=== PATIENT | female | born 1945 | race Caucasian/White ===

== ENCOUNTER 2016-09-01 09:27 | Inpatient (IN) ==
--- NOTE | 2016-09-01 10:09 | Emergency Department Note ---
Disposition Clinical Impression: Community acquired pneumonia, Dyspnea, Lactic acidosis, Frail elderly, Hiatal hernia, Hyperglycemia Disposition: Admitted As Inpatient Referrals: Claude Blount MD [Primary Care Provider] - Forms: ED Satisfaction Letter General Adult HPI - General Chief complaint: ED Shortness of Breath/Dyspnea Stated complaint: Pneumonia, pleurisy Time Seen by Provider: 09/01/16 10:09 Source: patient Limitations: no limitations - History of Present Illness HPI Narrative: 70-year-old female reports to the emergency from her primary care physician's office with concerns for shortness of breath or persistent cough. The patient has had symptomatology for about one week. She went to see her primary care physician on Sunday was placed on Levaquin and steroid medication, she followed up today and had persistent symptoms, he was reportedly concerned based on her apparent nonimprovement and shortness of breath and sent the patient to the hospital for further evaluation. She describes chest pain associated with coughing no coughing up blood or syncope. The patient has no known lung disease, she does not have asthma COPD or require oxygen at home. There is no history of fever. No previous DVT PE or cancer noted. The patient has had no abdominal pain but has had recurrent diarrhea. No blood in the stool. No syncope. No trouble moving the arms or legs and apparently no acute back pain or urinary symptoms noted. Cough, dyspnea, and a diagnosis of pneumonia are reported. Pain Scale: 7 - Related Data Home Medications Medication Instructions Recorded Confirmed Alprazolam [Xanax] 0.25 mg PO BID 03/24/15 03/24/15 HYDROcodone/Acet 10/325 mg [[place] 0.5 each QID 03/24/15 03/24/15 10-325 mg] Metoprolol [Lopressor] 25 mg PO BID 03/24/15 03/24/15 Tizanidine [Zanaflex] 4 mg PO TID 03/24/15 03/24/15 Previous Rx's Medication Instructions Recorded Esomeprazole Magnesium [Nexium] 20 mg PO DAILY #20 capsule. 03/24/15 Allergies Allergy/AdvReac Type Severity Reaction Status Date / Time No Known Allergies Allergy Verified 03/24/15 12:49 All systems ED: reviewed and negative except as stated. Past Medical History - Past Medical History Medical history: Reports: arthritis, GERD, hyperlipidemia, hypertension, other Surgical history: Reports: appendectomy, colectomy, hysterectomy, orthopedic, other Psychiatric history: Reports: anxiety, depression SYSTEMS DEVELOPMENT CONSULTANT history: Reports: no SYSTEMS DEVELOPMENT CONSULTANT history - Social History Smoking Status: Current every day smoker Smokeless Tobacco Status: No Alcohol use: Reports: none Drug use: Reports: none Physical Exam - General Limitations: no limitations General appearance: alert, in no apparent distress - Head Head exam: atraumatic, normocephalic, normal inspection - Eye Eye exam: Present: normal appearance, PERRL, EOMI - ENT ENT exam: normal exam, normal oropharynx, mucous membranes moist, TM's normal bilaterally, normal external ear exam - Neck Neck exam: Present: normal inspection, full ROM, trachea midline - Chest Chest inspection: Present: symmetric chest wall rise. Absent: tenderness - Respiratory Respiratory exam: Present: prolonged expiratory phase, other (Coarse breath sounds on the right.). Absent: respiratory distress - Cardiovascular Cardiovascular exam: Present: regular rate, normal rhythm, normal heart sounds - Abdominal Exam Abdominal exam: Present: soft, Non-Tender. Absent: tenderness, distention, guarding, rebound, rigidity, pulsatile mass - Extremities Exam Extremities exam: Present: normal inspection, full ROM, normal capillary refill. Absent: tenderness, pedal edema, joint swelling, calf tenderness - Expanded Lower Extremity Exam Lower leg exam: Absent: Homans' sign Neurovascular/Tendon exam: Absent: motor deficit, sensory deficit, tendon deficit - Back Exam Back exam: Present: normal inspection, full ROM. Absent: tenderness, CVA tenderness (R), CVA tenderness (L), vertebral tenderness - Neurological Exam Neurological exam: Present: alert, oriented X3, CN II-XII intact. Absent: motor sensory deficit - Psychiatric Psychiatric exam: Present: normal affect, normal mood - Skin Skin exam: Present: warm, dry, intact, normal color. Absent: rash, cyanosis, diaphoresis, erythema, pallor, mottled Course Vital Signs Temperature 98.8 F 09/01/16 09:34 Pulse Rate 87 09/01/16 09:34 Respiratory Rate 18 09/01/16 09:34 Blood Pressure 179/103 09/01/16 09:34 O2 Sat by Pulse Oximetry 94 L 09/01/16 09:34 Temperature 98.8 F 09/01/16 09:34 Pulse Rate 78 01/20/17 11:16 Respiratory Rate 18 09/01/16 11:16 Blood Pressure 148/76 09/01/16 11:16 O2 Sat by Pulse Oximetry 98 09/01/16 11:16 Oxygen Delivery Oxygen Delivery Nasal Cannula Medical Decision Making - [facility] Narrative Medical decision making narrative: The patient is elderly, dyspneic, and has coarse breath sounds. She has been treated outpatient. She seems to have had no improvement after outpatient treatment. Her primary care physician had seen her twice this week and sent her to the hospital. We gave her a DuoNeb here in the ER and supplemented her oxygen. She had relative hypoxemia with a sat of 94. Her chest x-ray shows probable atelectatic change with a large hiatal hernia, she does have an elevated white blood cell count as well as lactic acid, fluid was ordered. IV antibiotic's word. Cultures were sent. The patient's cardiac testing is essentially negative. No acute changes noted. Based on her persistent symptomatology, age, abnormal laboratory findings, course breath sounds, and apparent nonimprovement on an outpatient basis I have consulted the hospitalist. - Lab Data Lab results reviewed: Yes I reviewed the patient's lab results. Result diagrams: 09/01/16 10:22 09/01/16 10:22 Lab Results 09/01/16 09/01/16 09/01/16 Range/Units 10:22 10:22 10:22 WBC 12.1 H (4.3-11.1) K/mcL RBC 4.27 (3.82-4.97) M/mcL Hgb 13.9 (11.5-15.4) g/dL Hct 40.6 (35.3-44.9) % MCV 95.1 (83.0-100.0) fL MCH 32.6 (28.0-33.3) pg MCHC 34.2 (31.6-35.5) g/dL RDW 12.8 (11.5-14.5) % Plt Count 256 (140-400) K/mcL MPV 9.5 (9.4-12.4) fL Immature Gran % 1.0 (0-4) % Seg Neutrophils % 86.7 % Lymphocytes % 8.3 % Monocytes % 3.8 % Eosinophils % 0.0 % Basophils % 0.2 % Neutrophils # 10.5 H (1.6-8.9) K/mcL Lymphocytes # 1.0 (0.6-4.6) K/mcL Monocytes # 0.5 (0.0-1.3) K/mcL Eosinophils # 0.0 (0.0-0.6) K/mcL Basophils # 0.0 (0.0-0.2) K/mcL Sodium 142 (136-145) mEq/L Potassium 3.6 (3.5-4.5) mEq/L Chloride 110 H (98-109) mEq/L Carbon Dioxide 19 (19-29) mEq/L BUN 17 (7-20) mg/dL Creatinine 0.85 (0.57-1.11) mg/dL Est GFR ( Amer) > 60 (> 60) Est GFR (Non-Af Amer) > 60 (> 60) BUN/Creatinine Ratio 20 (6-26) Glucose 146 H (70-99) mg/dL Calculated Osmolality 298 (280-300) Lactic Acid 3.1 H (0.5-2.2) mmol/L Calcium 9.8 (8.6-10.8) mg/dL Total Bilirubin 0.3 (0.2-1.2) mg/dL Direct Bilirubin 0.1 (0.0-0.5) mg/dL Indirect Bilirubin 0.2 (0.0-1.2) mg/dL AST 14 (5-34) Units/L ALT 20 (0-55) Units/L Alkaline Phosphatase 70 (38-126) Units/L Troponin I (0-0.03) ng/mL C-Reactive Protein (Less than 5) mg/L B-Natriuretic Peptide (0-100) pg/mL Serum Total Protein 7.5 (6.0-8.3) g/dL Albumin 3.3 L (3.5-5.0) g/dL Globulin 4.2 H (2.4-3.5) g/dL Albumin/Globulin Ratio 0.8 L (1.1-2.2) 09/01/16 09/01/16 09/01/16 Range/Units 10:22 10:22 10:22 WBC (4.3-11.1) K/mcL RBC (3.82-4.97) M/mcL Hgb (11.5-15.4) g/dL Hct (35.3-44.9) % MCV (83.0-100.0) fL MCH (28.0-33.3) pg MCHC (31.6-35.5) g/dL RDW (11.5-14.5) % Plt Count (140-400) K/mcL MPV (9.4-12.4) fL Immature Gran % (0-4) % Seg Neutrophils % % Lymphocytes % % Monocytes % % Eosinophils % % Basophils % % Neutrophils # (1.6-8.9) K/mcL Lymphocytes # (0.6-4.6) K/mcL Monocytes # (0.0-1.3) K/mcL Eosinophils # (0.0-0.6) K/mcL Basophils # (0.0-0.2) K/mcL Sodium (136-145) mEq/L Potassium (3.5-4.5) mEq/L Chloride (98-109) mEq/L Carbon Dioxide (19-29) mEq/L BUN (7-20) mg/dL Creatinine (0.57-1.11) mg/dL Est GFR ( Amer) (> 60) Est GFR (Non-Af Amer) (> 60) BUN/Creatinine Ratio (6-26) Glucose (70-99) mg/dL Calculated Osmolality (280-300) Lactic Acid (0.5-2.2) mmol/L Calcium (8.6-10.8) mg/dL Total Bilirubin (0.2-1.2) mg/dL Direct Bilirubin (0.0-0.5) mg/dL Indirect Bilirubin (0.0-1.2) mg/dL AST (5-34) Units/L ALT (0-55) Units/L Alkaline Phosphatase (38-126) Units/L Troponin I 0.01 (0-0.03) ng/mL C-Reactive Protein 11 H (Less than 5) mg/L B-Natriuretic Peptide 146 H (0-100) pg/mL Serum Total Protein (6.0-8.3) g/dL Albumin (3.5-5.0) g/dL Globulin (2.4-3.5) g/dL Albumin/Globulin Ratio (1.1-2.2) - Radiology Data Radiology results reviewed: Yes I reviewed the patient's radiology results.
[2016-09-01] MEDS ORDERED: Ipratropium/Albuterol Neb 3 ML IH ONE (10:10)
[2016-09-01] MEDS ORDERED: 0.9 % Sodium Chloride 1,000 ML IVC ONE ×2 (10:11→11:51)
[2016-09-01 10:34] LABS: Basophils % 0.2 %; Hematocrit 40.6 % (35.3-44.9); Hemoglobin 13.9 g/dL (11.5-15.4); Lymphocytes % 8.3 %; Mean Corpuscular HGB Conc 34.2 g/dL (31.6-35.5); Mean Corpuscular Hemoglobin 32.6 pg (28.0-33.3); Mean Corpuscular Volume 95.1 fL (83.0-100.0); Mean Platelet Volume 9.5 fL (9.4-12.4); Monocytes # 0.5 K/mcL (0.0-1.3); Monocytes % 3.8 %; Neutrophils # 10.5 K/mcL (1.6-8.9); Platelet Count 256 K/mcL (140-400); Red Blood Count 4.27 M/mcL (3.82-4.97); Red Cell Distribution Width 12.8 % (11.5-14.5); Segmented Neutrophils % 86.7 %
[2016-09-01 10:47] LABS: Alanine Aminotransferase 20 Units/L (0-55); Albumin 3.3 g/dL (3.5-5.0); Albumin/Globulin Ratio 0.8 (1.1-2.2); Alkaline Phosphatase 70 Units/L (38-126); Aspartate Amino Transferase 14 Units/L (5-34); BUN/Creatinine Ratio 20 (6-26); Bilirubin,Direct 0.1 mg/dL (0.0-0.5); Bilirubin,Indirect 0.2 mg/dL (0.0-1.2); Bilirubin,Total 0.3 mg/dL (0.2-1.2); Blood Urea Nitrogen 17 mg/dL (7-20); Calcium 9.8 mg/dL (8.6-10.8); Carbon Dioxide 19 mEq/L (19-29); Chloride 110 mEq/L (98-109); Globulin 4.2 g/dL (2.4-3.5); Glucose 146 mg/dL (70-99); Osmolality,Calculated 298 (280-300); Potassium 3.6 mEq/L (3.5-4.5); Sodium 142 mEq/L (136-145); Total Protein 7.5 g/dL (6.0-8.3); eGFR For African Americans > 60 (> 60); eGFR For Non-African Americans > 60 (> 60)
[2016-09-01] MEDS ORDERED: Levofloxacin 750 MG/150 ML 750 MG/150 ML BAG IVPB ONE (12:08)
[2016-09-01] MEDS ORDERED: Ondansetron 4 MG/2 ML VIAL IVP PRN (12:34)
[2016-09-01] MEDS ORDERED: *HR* Morphine 2 MG/ML SYRINGE IVP PRN (12:34)
[2016-09-01] MEDS ORDERED: Naloxone 0.4 MG/ML INJ IVP PRN (12:34)
[2016-09-01] MEDS ORDERED: Ipratropium/Albuterol Neb 3 ML IH PRN (12:38)
[2016-09-01] MEDS ORDERED: methylPREDNISolone 125 MG/2 ML VIAL IVP ONE (12:38)
--- NOTE | 2016-09-01 12:44 | Internal Med History&Physical ---
Date of Encounter: 09/01/16 Time of Encounter: 12:41 Assessment and Plan (1) Sepsis Current visit: Yes Status: Acute Possible acute COPD exacerbation Secondary to community-acquired pneumonia that failed outpatient therapy Start Rocephin and azithromycin Blood Cultures, Start IV Solu-Medrol, Continue Oxygen Therapy Order Another Lactic Acid Mild hydration Check a respiratory viral panel Qualifiers: Sepsis type: sepsis due to unspecified organism Qualified Code(s): A41.9 - Sepsis, unspecified organism (2) Hypertension Current visit: Yes Status: Acute Accelerated hypertension Continue metoprolol, order hydralazine IV as needed Qualifiers: Hypertension type: essential hypertension Qualified Code(s): I10 - Essential (primary) hypertension (3) Tobacco abuse Current visit: Yes Status: Acute Smoking cessation counseling given for 5 minutes. Nicotine patch offered (4) Community acquired pneumonia Current visit: Yes Status: Acute (5) Lactic acidosis Current visit: Yes Status: Acute Likely secondary to sepsis Omeprazole for GI prophylaxis and subcutaneous heparin for DVT prophylaxis. The patient will be admitted as inpatient, she is expected to stay more than 2 midnights. Full code. Time spent on this admission 40 minutes. High risk for respiratory failure and sepsis Internal Medicine - H&P: HPI Chief complaint: SOB and Pneumonia Admitted From: Emergency Dept History of present illness: Ms. Lopez is a 70 year old female with a PMHx of tobacco abuse, HTN, HLD, comes today to the ER from her primary care physician office as she has been dealing with a respiratory infection for about a week. 2 days ago, she was started on Levaquin by her primary care physician was given prednisone as well. She is in complaining of right sided chest pain pleuritic in nature. Unfortunately the patient has not improved, her lactic acid is 3.1, white blood cell count is 12.1, has been bringing up yellowish phlegm. Chest x-ray shows a retro-cardiac opacity/left lower lobe infiltrate. She denies any sick contacts. Her blood pressure is 179/103. She is very anxious and feels extremely short of breath, appears ill, has been complaining of chills. Failed outpatient therapy. Has no prior diagnosis of COPD Past Med Surg Social Fam HX - Past Medical History Medical history: arthritis, GERD, hyperlipidemia, hypertension, other (Tobacco use, osteoarthritis, depression, degenerative joint disease, diverticulosis, iron deficiency anemia) Psychiatric history: anxiety, depression - Past Surgical History Surgical History: appendectomy, colectomy, hysterectomy, orthopedic, other - Social History Smoking Status: Current every day smoker Packs per day: 1 Smokeless Tobacco Status: No Alcohol use: none Drug use: none - Additional Family History Additional family history: Mother with diabetes and myocardial infarction in her 60s, father with a myocardial infarction, 2 sons who of myocardial infarction at the ages of 38 and 49 Internal Medicine - H&P: Meds Alprazolam [Xanax] 0.25 mg PO BID 03/24/15 [History] HYDROcodone/Acet 10/325 mg [[place] 10-325 mg] 0.5 each QID 03/24/15 [History] Metoprolol [Lopressor] 25 mg PO BID 03/24/15 [History] Tizanidine [Zanaflex] 4 mg PO TID 03/24/15 [History] Acetaminophen [Tylenol] 1,000 mg PO Q6HR PRN 09/01/16 [History] Ascorbate Calcium [Vitamin C] 500 mg PO DAILY 09/01/16 [History] Ferrous Sulfate [Iron] 325 mg PO BID 09/01/16 [History] Ketoconazole Shampoo [Nizoral Shampoo] 1 appl TP 3XW 09/01/16 [History] L. Acidophilus/Pectin, [place] [Acidophilus Probiotic Capsule] 1 cap PO DAILY [History] Levofloxacin [Levaquin] 500 mg PO DAILY 09/01/16 [History] Magnesium Amino Acid Chelate [Magnesium] 100 mg PO DAILY 09/01/16 [History] Melatonin 5 - 10 mg PO HS 09/01/16 [History] Mometasone Furoate [Elocon] 1 appl TP DAILY 09/01/16 [History] Nitroglycerin [Nitrostat] 0.4 mg SL AD PRN 09/01/16 [History] [place]-3/Dha/Epa/Fish Oil [Fish Oil 1,000 mg Softgel] 1,000 mg PO DAILY 09/01/16 [History] Omeprazole [PriLOSEC] 20 mg PO DAILY 09/01/16 [History] Potassium Gluconate 99 mg PO DAILY 09/01/16 [History] PredniSONE 10 mg PO AD 09/01/16 [History] Allergies No Known Allergies Allergy (Verified 08/12/15 12:49) All Systems PM: A 10-system review of systems was performed and is negative for pertinent findings except as documented above in the HPI. Review of systems: Still in respiratory distress, no abdominal pain, no dysuria. Other systems out of the ten reviewed were negative - Constitutional Vitals: Temp Pulse Resp BP Pulse Ox 98.8 F 78 18 148/76 98 09/01/16 09:34 09/01/16 11:16 09/01/16 11:16 09/01/16 11:16 09/01/16 11:16 General appearance: Present: A&O X 3, underweight - Head Head exam: Present: atraumatic, normocephalic - Eye Eye exam: Present: PERRL, conjuntiva pink, sclera anicteric Pupils: Present: PERRL - Neck Neck exam general surgery: Present: supple, trachea midline. Absent: lymphadenopathy - Respiratory Respiratory exam: Present: CTAB, rales, wheezes (Diffuse crackles and wheezing mainly in the left lung field ). Absent: accessory muscle use, rhonchi - Cardiovascular Cardiovascular exam: Present: RRR, +S1, +S2. Absent: diastolic murmur, gallop, rubs, systolic murmur - GI/Abdominal GI/Abdominal exam: Present: normal bowel sounds, soft, no peritoneal signs. Absent: distended, tenderness - Extremities Exam Extremities exam: Present: warm, radial pulses palpable and symetrical. Absent : calf tenderness, cyanotic, pedal edema - Neurological Exam Neurological exam: Present: CN II-XII intact, oriented X3, no focal deficits. Absent: pronater drift, facial droop, speech deficit - Skin Skin exam: Present: dry, intact Internal Med - H&P Results - Labs CBC & Chem 7: 09/01/16 10:22 09/01/16 10:22
[2016-09-01] MEDS: Ipratropium/Albuterol Neb 3 ML IH SCH ×3 (13:36→22:46)
[2016-09-01] MEDS: 0.9 % Sodium Chloride 1,000 ML IVC SCH (14:17)
[2016-09-01] MEDS: Nicotine 21 MG PATCH.TD24 TD SCH (14:17)
[2016-09-01] MEDS: Azithromycin 500 MG in D5% in Water 250 ML IVPB SCH (16:07)
--- NOTE | 2016-09-01 16:12 | Electrocardiograph Report ---
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
[2016-09-01 16:13] LABS: Adenovirus Not Detected (Not Detect); Bordetella Pertussis Not Detected (Not Detect); Chlamydophila pneumoniae Not Detected (Not Detect); Coronavirus 229E Not Detected (Not Detect); Coronavirus HKU1 Not Detected (Not Detect); Coronavirus NL63 Not Detected (Not Detect); Coronavirus OC43 Not Detected (Not Detect); Human Metapneumovirus Not Detected (Not Detect); Human Rhinovirus/Enterovirus Not Detected (Not Detect); Influenza A Subtype 2009 H1 Not Detected (Not Detect); Influenza A Untypeable Not Detected (Not Detect); Influenza B Not Detected (Not Detect); Mycoplasma pneumoniae Not Detected (Not Detect); Parainfluenza Virus 1 Not Detected (Not Detect); Parainfluenza Virus 2 Not Detected (Not Detect); Parainfluenza Virus 3 Not Detected (Not Detect); Parainfluenza Virus 4 Not Detected (Not Detect); Respiratory Syncytial Virus Not Detected (Not Detect)
[2016-09-01] MEDS: *HR* Heparin 5,000 UNIT/ML VIAL SQ SCH (16:18)
[2016-09-01] MEDS: Acetaminophen 325 MG TABLET PO PRN (20:19)
[2016-09-01] MEDS: ALPRAZolam 0.25 MG TABLET PO PRN (20:19)
[2016-09-01] MEDS: MethylPREDNISolone 40 MG/ML VIAL IVP SCH (22:38)
[2016-09-02] MEDS: *HR* Heparin 5,000 UNIT/ML VIAL SQ SCH ×3 (00:56→16:17)
[2016-09-02] MEDS: Melatonin 3 MG TABLET PO SCH ×2 (02:10→20:10)
[2016-09-02] MEDS: Ipratropium/Albuterol Neb 3 ML IH SCH ×4 (03:59→22:14)
[2016-09-02] MEDS: Acetaminophen 325 MG TABLET PO PRN (05:38)
[2016-09-02] MEDS: MethylPREDNISolone 40 MG/ML VIAL IVP SCH ×2 (05:38→16:18)
[2016-09-02] MEDS: 0.9 % Sodium Chloride 1,000 ML IVC SCH ×2 (05:43→20:09)
[2016-09-02 06:25] LABS: Hematocrit 39.5 % (35.3-44.9); Hemoglobin 13.4 g/dL (11.5-15.4); Mean Corpuscular HGB Conc 33.9 g/dL (31.6-35.5); Mean Corpuscular Hemoglobin 32.6 pg (28.0-33.3); Mean Corpuscular Volume 96.1 fL (83.0-100.0); Mean Platelet Volume 9.6 fL (9.4-12.4); Platelet Count 274 K/mcL (140-400); Red Blood Count 4.11 M/mcL (3.82-4.97); Red Cell Distribution Width 12.8 % (11.5-14.5)
[2016-09-02 06:38] LABS: BUN/Creatinine Ratio 17 (6-26); Blood Urea Nitrogen 14 mg/dL (7-20); Calcium 9.7 mg/dL (8.6-10.8); Carbon Dioxide 20 mEq/L (19-29); Chloride 108 mEq/L (98-109); Glucose 206 mg/dL (70-99); Osmolality,Calculated 298 (280-300); Potassium 3.7 mEq/L (3.5-4.5); Sodium 141 mEq/L (136-145); eGFR For African Americans > 60 (> 60); eGFR For Non-African Americans > 60 (> 60)
[2016-09-02] MEDS: Nicotine 21 MG PATCH.TD24 TD SCH (08:47)
--- NOTE | 2016-09-02 10:00 | Internal Med Progress Note ---
Date of Encounter: 09/02/16 Time of Encounter: 09:57 - Assessment and plan (1) Community acquired pneumonia Current Visit: Yes Status: Acute Assessment and plan: Failed outpatient treatment with oral Levaquin. Follow-up blood cultures and continue IV Rocephin and Zithromax. Improving slowly. Improved leukocytosis but noted to have persistent lactic acidosis. Continue IV hydration and monitor serum lactic acid levels closely. No evidence of peripheral hypoperfusion and shock. Patient may be having underlying COPD given her long smoking history, however refuses to believe this. Continue tapering IV steroids as tolerated along with bronchodilators and supplemental oxygen as needed. Needs outpatient pulmonology follow-up although she is not agreeable to this at this time. (2) Hypertension Current Visit: Yes Status: Acute Assessment and plan: Noted to have poorly controlled blood pressure, likely at baseline. Continue metoprolol and use when necessary IV hydralazine for better control. Will need to be started on a second antihypertensive at the time of discharge. Qualifiers: Hypertension type: essential hypertension Qualified Code(s): I10 - Essential (primary) hypertension (3) Lactic acidosis Current Visit: Yes Status: Acute (4) Tobacco abuse Current Visit: Yes Status: Chronic Assessment and plan: Counseled regarding smoking cessation. Patient is trying to cut down although she continues to smoke half to 1 pack per day due to ongoing depression. - Subjective Interval history: Reports improved shortness of breath but continues to have generalized weakness. Reports having had a restless night with poor sleep, Benadryl did not help her. Noted to be tearful and depressed as she lost 3 sons and her in a span of 5 years and she tends to get depressed during the holiday season up to September. - Constitutional Vitals: Temp Pulse Resp BP Pulse Ox 98.1 F 88 18 172/88 95 09/02/16 06:34 09/02/16 06:34 09/02/16 06:34 09/02/16 06:34 09/02/16 06:34 General appearance: Present: A&O X 3, answers questions appropriately - Head Head exam: Present: atraumatic, normocephalic - Neck Neck exam general surgery: Present: supple, trachea midline. Absent: lymphadenopathy - Respiratory Respiratory exam: Present: wheezes (Mild end expiratory wheezing bilateral anteriorly and posteriorly). Absent: accessory muscle use, rales, rhonchi - Cardiovascular Cardiovascular exam: Present: RRR, +S1, +S2. Absent: diastolic murmur, gallop, rubs, systolic murmur - GI/Abdominal GI/Abdominal exam: Present: normal bowel sounds, soft, no peritoneal signs. Absent: distended, tenderness - Extremities Exam Extremities exam: Present: full ROM, warm, radial pulses palpable and symetrical. Absent: calf tenderness, cyanotic, pedal edema - Neurological Exam Neurological exam: Present: CN II-XII intact, oriented X3, no focal deficits. Absent: pronater drift, facial droop, speech deficit - Psychiatric Psychiatric exam: Present: depressed Internal Medicine: Result - Labs CBC & Chem 7: 09/02/16 06:07 09/02/16 06:07 Labs: Short CBC 09/02/16 Range/Units 06:07 WBC 9.2 (4.3-11.1) K/mcL Hgb 13.4 (11.5-15.4) g/dL Hct 39.5 (35.3-44.9) % Plt Count 274 (140-400) K/mcL BMP 09/02/16 06:07 Sodium 141 Potassium 3.7 Chloride 108 Carbon Dioxide 20 BUN 14 Creatinine 0.84 Glucose 206 H Calcium 9.7 Consult Discharge Plan - Plan Referrals: Claude Blount MD [Primary Care Provider] -
[2016-09-02] MEDS: ALPRAZolam 0.25 MG TABLET PO PRN ×2 (10:33→20:10)
[2016-09-02] MEDS: Azithromycin 500 MG in D5% in Water 250 ML IVPB SCH (12:16)
[2016-09-02] MEDS ORDERED: Temazepam 15 MG CAPSULE PO PRN (21:00)
[2016-09-03] MEDS: *HR* Heparin 5,000 UNIT/ML VIAL SQ SCH ×2 (02:47→07:24)
[2016-09-03] MEDS: MethylPREDNISolone 40 MG/ML VIAL IVP SCH ×2 (02:47→07:23)
[2016-09-03] MEDS: Nicotine 21 MG PATCH.TD24 TD SCH ×2 (02:51→07:24)
[2016-09-03] MEDS: Ipratropium/Albuterol Neb 3 ML IH SCH ×2 (04:38→10:31)
[2016-09-03] MEDS: Acetaminophen 325 MG TABLET PO PRN (05:30)
[2016-09-03] MEDS: ALPRAZolam 0.25 MG TABLET PO PRN (05:31)
[2016-09-03 11:49] VITALS: BP 193/76
--- NOTE | 2016-09-03 12:20 | Discharge Summary ---
Date of Encounter: 09/03/16 Time of Encounter: 12:14 - Discharge Diagnosis (1) Community acquired pneumonia Priority: Primary Status: Acute (2) Hypertension Priority: Primary Status: Chronic Qualifiers: Hypertension type: essential hypertension Qualified Code(s): I10 - Essential (primary) hypertension (3) Lactic acidosis Priority: Primary Status: Resolved (4) Tobacco abuse Priority: Secondary Status: Chronic - Discharge Medications Prescriptions: Lisinopril [Zestril] 10 mg PO DAILY #30 tablet PredniSONE 40 mg PO DAILY 12 Days Home Medications: Alprazolam [Xanax 0.25 MG Tablet] 0.25 mg PO BID 03/24/15 [History] HYDROcodone/Acet 10/325 mg [[place] 10-325 mg] 0.5 tab PO QID 03/24/15 [History] Tizanidine [Zanaflex] 4 mg PO TID PRN 03/24/15 [History] Acetaminophen [Tylenol] 1,000 mg PO Q6HR PRN 09/01/16 [History] Ascorbate Calcium [Vitamin C] 500 mg PO DAILY 09/01/16 [History] Ferrous Sulfate [Iron] 325 mg PO BID 09/01/16 [History] Ketoconazole Shampoo [Nizoral Shampoo] 1 appl TP 3XW 09/01/16 [History] L. Acidophilus/Pectin, [place] [Acidophilus Probiotic Capsule] 1 cap PO DAILY [History] Magnesium Amino Acid Chelate [Magnesium] 100 mg PO DAILY 09/01/16 [History] Melatonin 5 - 10 mg PO HS 09/01/16 [History] Mometasone Furoate [Elocon] 1 appl TP DAILY 09/01/16 [History] Nitroglycerin [Nitrostat] 0.4 mg SL AD PRN 09/01/16 [History] [place]-3/Dha/Epa/Fish Oil [Fish Oil 1,000 mg Softgel] 1,000 mg PO DAILY 09/01/16 [History] Omeprazole [PriLOSEC] 20 mg PO DAILY 09/01/16 [History] Potassium Gluconate 99 mg PO DAILY 09/01/16 [History] Levofloxacin [Levaquin] 500 mg PO DAILY #10 09/03/16 [Rx] Lisinopril [Zestril] 10 mg PO DAILY #30 tablet 09/03/16 [Rx] Metoprolol [Lopressor] 50 mg PO BID #60 09/03/16 [Rx] PredniSONE 40 mg PO DAILY 12 Days 09/03/16 [Rx] Allergies/Adverse Reactions: Allergies No Known Allergies Allergy (Verified 03/24/15 12:49) - Notes to Outpatient Provider Please check and monitor BP in the outpatient setting; may need Pulmonology evaluation for underlying chronic bronchitis; Date of admission: 09/01/16 12:34 Primary care physician: Claude Blount MD Consults: 09/01/16 14:37 Consult to Nutrition [CONS] Routine Comment: Consulting Provider: NUTRITION Reason for Dietary Consult: MST Score Discharging clinician: Vikci Brennan Anticipated date of discharge: 09/03/16 - Patient Status Disposition: Home, Self-Care Condition: Good Functional capacity at discharge: independent ambulation Overall status at discharge: patient is progressing back to baseline - Discharge Instructions Instructions: Pneumonia (DC) Follow Up With: Claude Blount MD [Primary Care Provider] - (Web appointment requested. Office will call you with an appointment.) Maya Truong MD [Partnered Physician] - (Web appointment requested. Office will call you with an appointment.) Additional Instructions: F/up with [facility] for possible LFTs - Diet and Activity Activity: resume usual activities as tolerated Diet: low fat, low cholesterol, low salt diet Hospital course: Ms. Lopez is a 70 year old female with h/o- chronic smoking, was admitted with worsening shortness of breath and cough. Chest XRay shows possible left lower lobe. She was also noted to be wheezing and was treated for acute exacerbation of COPD with IV steroids, antibiotics, bronchodilators, supplemental O2. she gradually improved on this regimen. SHe was noted to have uncontrolled HTN and BP meds were adjusted, recommended to f/up with her PCP. Patient was also noted to be tearful and depressed due to deaths in her family about this time of year. Offered comfort and talked to the patient, encouraged her to f/up for Counseling if needed, and she was stable and very thankful at the time of discharge. She no longer requires supplemental O2. Time spent discussing smoking cessation with patient: 3 to 10 minutes - Time Spent with Patient Total time spent providing and/or coordinating discharge services: Greater than 30 minutes (50 min) - Constitutional Vitals: Temp Pulse Resp BP Pulse Ox 97.8 F 73 16 193/76 92 L 09/03/16 11:19 09/03/16 11:19 09/03/16 11:19 09/03/16 11:48 09/03/16 11:19 General appearance: Present: A&O X 3, answers questions appropriately - Respiratory Respiratory exam: Present: CTAB. Absent: accessory muscle use, rales, rhonchi, wheezes - Cardiovascular Cardiovascular exam: Present: RRR, +S1, +S2. Absent: diastolic murmur, gallop, rubs, systolic murmur - GI/Abdominal GI/Abdominal exam: Present: normal bowel sounds, soft, no peritoneal signs. Absent: distended, tenderness
[2016-09-03] MEDS ORDERED: MethylPREDNISolone 40 MG/ML VIAL IVP SCH (18:00)
== END 2016-09-03 12:58 | disposition home or self-care (01) | DRG 871 ==
LOC: EMEROO 09:27 → 2ANU 09:27
PROVIDERS: ADMIT Internal Medicine; ATTEND Internal Medicine

== ENCOUNTER 2020-08-12 18:38 | Observation (INO) ==
[2020-08-12] MEDS ORDERED: 0.9 % Sodium Chloride 1,000 ML IVC ONE (19:29)
[2020-08-12] MEDS ORDERED: Ondansetron 4 MG/2 ML VIAL IVP ONE (19:31)
[2020-08-12] MEDS ORDERED: Isovue-370 500 ML BOTTLE IVP ONE ×2 (19:39→20:28)
[2020-08-12 20:16] LABS: Basophils # 0.1 K/mcL (0.0-0.2); Basophils % 0.8 %; Eosinophils # 0.9 K/mcL (0.0-0.6); Eosinophils % 11.6 %; Hematocrit 47.5 % (35.3-44.9); Hemoglobin 15.4 g/dL (11.5-15.4); Immature Granulocytes % 0.4 % (0-4); Lymphocytes # 1.7 K/mcL (0.6-4.6); Lymphocytes % 22.4 %; Mean Corpuscular HGB Conc 32.4 g/dL (31.6-35.5); Mean Corpuscular Hemoglobin 31.8 pg (28.0-33.3); Mean Corpuscular Volume 98.1 fL (83.0-100.0); Monocytes # 0.7 K/mcL (0.0-1.3); Neutrophils # 4.1 K/mcL (1.6-8.9); Platelet Count 240 K/mcL (140-400); Red Blood Count 4.84 M/mcL (3.82-4.97); Segmented Neutrophils % 55.8 %; White Blood Count 7.4 K/mcL (4.3-11.1)
[2020-08-12 20:23] LABS: INR 1.1
[2020-08-12] MEDS ORDERED: *HR* FentaNYL (PF) 100 MCG/2 ML VIAL IVP ONE (20:34)
[2020-08-12 20:39] LABS: Alanine Aminotransferase 6 Units/L (7-52); Albumin 3.9 g/dL (3.5-5.7); Albumin/Globulin Ratio 0.9 (1.1-2.2); Alkaline Phosphatase 66 Units/L (34-104); Aspartate Amino Transferase 14 Units/L (13-39); BUN/Creatinine Ratio 14 (6-26); Bilirubin,Total 0.8 mg/dL (0.3-1.0); Blood Urea Nitrogen 13 mg/dL (8-23); Calcium 9.9 mg/dL (8.6-10.3); Carbon Dioxide 25 mEq/L (23-29); Chloride 98 mEq/L (98-107); Creatine Kinase 85 Units/L (30-223); Globulin 4.2 g/dL (2.4-3.5); Glucose 113 mg/dL (70-105); Magnesium 2.1 mg/dL (1.6-2.6); Osmolality,Calculated 277 (280-300); Phosphorous 3.6 mg/dL (2.7-4.5); Potassium 4.4 mEq/L (3.5-5.1); Sodium 133 mEq/L (136-145); Total Protein 8.1 g/dL (6.4-8.9); Troponin I < 0.03 ng/mL (< 0.04); eGFR For African Americans > 60 (> 60); eGFR For Non-African Americans 57 (> 60)
[2020-08-12 20:52] LABS: Thyroid Stimulating Hormone 2.138 mcIU/mL (0.340-5.600)
[2020-08-12 21:31] LABS: Bilirubin,Urine Negative (Negative); Blood,Urine Negative (Negative); Clarity,Urine Clear (Clear); Color,Urine Colorless (Yellow); Glucose,Urine (UA) Normal (Normal); Ketones,Urine Negative (Negative); Leukocyte Esterase,Urine Negative (Negative); Nitrite,Urine Negative (Negative); PH,Urine 5.5 pH Units (5.0-8.0); Protein,Urine Negative (Neg-Trace); Specific Gravity,Urine 1.017 (1.010-1.025); Urobilinogen,Urine Normal (Normal)
[2020-08-12] MEDS ORDERED: *HR* HYDROmorphone (PF) 1 MG/ML SYRINGE IVP ONE (23:50)
[2020-08-13] MEDS ORDERED: Naloxone 0.4 MG/ML INJ IVP PRN (00:14)
[2020-08-13] MEDS ORDERED: Ondansetron 4 MG/2 ML VIAL IVP PRN (00:14)
[2020-08-13] MEDS ORDERED: 0.9 % Sodium Chloride 1,000 ML IVC SCH (00:15)
[2020-08-13] MEDS ORDERED: 0.9 % Sodium Chloride 500 ML IV ONE (01:10)
[2020-08-13 02:45] LABS: Basophils # 0.1 K/mcL (0.0-0.2); Basophils % 0.7 %; Eosinophils # 0.6 K/mcL (0.0-0.6); Hematocrit 37.9 % (35.3-44.9); Immature Granulocytes % 0.4 % (0-4); Lymphocytes # 1.7 K/mcL (0.6-4.6); Lymphocytes % 24.2 %; Mean Corpuscular HGB Conc 32.2 g/dL (31.6-35.5); Mean Corpuscular Hemoglobin 31.9 pg (28.0-33.3); Mean Corpuscular Volume 99.2 fL (83.0-100.0); Mean Platelet Volume 10.4 fL (9.4-12.4); Monocytes # 0.8 K/mcL (0.0-1.3); Neutrophils # 3.9 K/mcL (1.6-8.9); Platelet Count 193 K/mcL (140-400); Red Blood Count 3.82 M/mcL (3.82-4.97); Red Cell Distribution Width 14.1 % (11.5-14.5); Segmented Neutrophils % 54.7 %; White Blood Count 7.1 K/mcL (4.3-11.1)
[2020-08-13 02:55] LABS: Hemoglobin 12.2 g/dL (11.5-15.4)
[2020-08-13 03:03] LABS: Alanine Aminotransferase 5 Units/L (7-52); Albumin 3.1 g/dL (3.5-5.7); Albumin/Globulin Ratio 0.9 (1.1-2.2); Alkaline Phosphatase 51 Units/L (34-104); Aspartate Amino Transferase 11 Units/L (13-39); BUN/Creatinine Ratio 12 (6-26); Bilirubin,Total 0.6 mg/dL (0.3-1.0); Blood Urea Nitrogen 11 mg/dL (8-23); Calcium 8.4 mg/dL (8.6-10.3); Carbon Dioxide 23 mEq/L (23-29); Chloride 103 mEq/L (98-107); Chol/HDL Ratio 6.3 (0-4.9); Cholesterol 151 mg/dL (< 200); Globulin 3.3 g/dL (2.4-3.5); Glucose 107 mg/dL (70-105); HDL Cholesterol 24 mg/dL (40-59); LDL Cholesterol,Calculated 82 mg/dL (< 100); Osmolality,Calculated 276 (280-300); Potassium 4.5 mEq/L (3.5-5.1); Sodium 133 mEq/L (136-145); Total Protein 6.4 g/dL (6.4-8.9); Triglycerides 223 mg/dL (< 150); eGFR For African Americans > 60 (> 60); eGFR For Non-African Americans 60 (> 60)
[2020-08-13] MEDS: *HR* Heparin 5,000 UNIT/ML VIAL SQ SCH ×4 (07:48→21:37)
[2020-08-13] MEDS ORDERED: Hydrocortisone Acetate 25 MG RECTAL SUPPOSITORY RC PRN (14:27)
[2020-08-14] MEDS: *HR* Heparin 5,000 UNIT/ML VIAL SQ SCH (05:20)
[2020-08-14 07:10] LABS: Basophils % 0.5 %; Eosinophils # 0.4 K/mcL (0.0-0.6); Eosinophils % 5.6 %; Hematocrit 38.2 % (35.3-44.9); Hemoglobin 12.6 g/dL (11.5-15.4); Immature Granulocytes % 0.3 % (0-4); Lymphocytes # 1.2 K/mcL (0.6-4.6); Lymphocytes % 17.9 %; Mean Corpuscular Hemoglobin 31.7 pg (28.0-33.3); Mean Corpuscular Volume 96.2 fL (83.0-100.0); Mean Platelet Volume 10.7 fL (9.4-12.4); Monocytes # 0.6 K/mcL (0.0-1.3); Neutrophils # 4.4 K/mcL (1.6-8.9); Platelet Count 181 K/mcL (140-400); Red Blood Count 3.97 M/mcL (3.82-4.97); Red Cell Distribution Width 13.4 % (11.5-14.5); Segmented Neutrophils % 66.7 %; White Blood Count 6.7 K/mcL (4.3-11.1)
[2020-08-14 07:33] LABS: BUN/Creatinine Ratio 10 (6-26); Blood Urea Nitrogen 8 mg/dL (8-23); Calcium 8.8 mg/dL (8.6-10.3); Carbon Dioxide 22 mEq/L (23-29); Chloride 101 mEq/L (98-107); Glucose 84 mg/dL (70-105); Osmolality,Calculated 280 (280-300); Potassium 3.9 mEq/L (3.5-5.1); Sodium 136 mEq/L (136-145); eGFR For African Americans > 60 (> 60); eGFR For Non-African Americans > 60 (> 60)
[2020-08-14 10:59] VITALS: BP 132/62
== END 2020-08-14 12:00 | disposition home or self-care (01) ==
LOC: 3NENU 18:38 → EMEROOARM 18:38 → 3NENU 08-13 00:31
PROVIDERS: ADMIT Student in an Organized Health Care Education/Training Program; ATTEND Student in an Organized Health Care Education/Training Program

== ENCOUNTER 2020-10-02 17:56 | Observation (INO) ==
[2020-10-02] MEDS ORDERED: Isovue-370 500 ML BOTTLE IVP ONE ×2 (18:15→20:26)
[2020-10-02 19:00] LABS: INR 1.1; Prothrombin Time 12.7 Seconds (9.4-12.1)
[2020-10-02 19:03] LABS: Activated Partial Thrombo Time 34.4 Seconds (26.0-36.0)
[2020-10-02 19:09] LABS: Basophils # 0.1 K/mcL (0.0-0.2); Basophils % 0.6 %; Eosinophils # 0.5 K/mcL (0.0-0.6); Eosinophils % 5.5 %; Hematocrit 49.2 % (35.3-44.9); Hemoglobin 15.7 g/dL (11.5-15.4); Immature Granulocytes % 0.3 % (0-4); Lymphocytes # 1.7 K/mcL (0.6-4.6); Mean Corpuscular HGB Conc 31.9 g/dL (31.6-35.5); Mean Corpuscular Hemoglobin 32.2 pg (28.0-33.3); Mean Platelet Volume 10.6 fL (9.4-12.4); Monocytes # 0.5 K/mcL (0.0-1.3); Monocytes % 5.9 %; Neutrophils # 5.8 K/mcL (1.6-8.9); Platelet Count 253 K/mcL (140-400); Red Blood Count 4.87 M/mcL (3.82-4.97); Red Cell Distribution Width 13.7 % (11.5-14.5); Segmented Neutrophils % 67.7 %; White Blood Count 8.6 K/mcL (4.3-11.1)
[2020-10-02 19:17] LABS: Alanine Aminotransferase 15 Units/L (7-52); Albumin 3.7 g/dL (3.5-5.7); Albumin/Globulin Ratio 0.8 (1.1-2.2); Alkaline Phosphatase 87 Units/L (34-104); Aspartate Amino Transferase 51 Units/L (13-39); BUN/Creatinine Ratio 15 (6-26); Bilirubin,Direct 0.1 mg/dL (0.0-0.2); Bilirubin,Indirect 0.3 mg/dL (0.0-1.0); Bilirubin,Total 0.4 mg/dL (0.3-1.0); Blood Urea Nitrogen 16 mg/dL (8-23); Calcium 10.3 mg/dL (8.6-10.3); Carbon Dioxide 28 mEq/L (23-29); Chloride 101 mEq/L (98-107); Globulin 4.4 g/dL (2.4-3.5); Glucose 105 mg/dL (70-105); Osmolality,Calculated 288 (280-300); Potassium 3.7 mEq/L (3.5-5.1); Sodium 138 mEq/L (136-145); Total Protein 8.1 g/dL (6.4-8.9); eGFR For African Americans > 60 (> 60); eGFR For Non-African Americans 51 (> 60)
[2020-10-02 19:18] LABS: Troponin I < 0.03 ng/mL (< 0.04)
[2020-10-02 19:31] LABS: Thyroid Stimulating Hormone 2.596 mcIU/mL (0.340-5.600)
[2020-10-02 19:42] LABS: Clarity,Urine Hazy (Clear); Color,Urine Dark-Orange (Yellow)
[2020-10-02 19:54] LABS: Amphetamine Screen,Urine Negative ng/mL (Cutoff=1000); Barbiturate Screen,Urine Negative ng/mL (Cutoff=200); Benzodiazepines Screen,Urine Positive ng/mL (Cutoff=200); Cannabinoid Screen,Urine Negative ng/mL (Cutoff = 50); Cocaine Screen,Urine Negative ng/mL (Cutoff= 300); Opiate Screen,Urine Positive ng/mL (Cutoff=300); Phencyclidine Screen,Urine Negative ng/mL (Cutoff=25)
[2020-10-02 20:03] LABS: Bacteria,Urine Many per hpf (None-Few); Squamous Epithelial Cell,Urine Few per hpf (None-Few); WBC,Urine 50-100 per hpf (0-3)
[2020-10-02] MEDS ORDERED: cefTRIAXone 2,000 MG in Water for inj. (sterile) 20 ML IVP ONE (20:17)
[2020-10-02] MEDS ORDERED: Azithromycin 500 MG in 0.9 % Sodium Chloride 250 ML IVPB ONE (21:43)
[2020-10-02] MEDS ORDERED: Ondansetron 4 MG/2 ML VIAL IVP PRN (23:28)
[2020-10-02] MEDS ORDERED: Naloxone 0.4 MG/ML INJ IVP PRN (23:28)
[2020-10-03 02:20] LABS: Basophils % 0.3 %; Eosinophils # 0.5 K/mcL (0.0-0.6); Eosinophils % 5.4 %; Hematocrit 42.2 % (35.3-44.9); Hemoglobin 13.9 g/dL (11.5-15.4); Immature Granulocytes % 0.2 % (0-4); Immature Platelets 3.4 % (1.1-6.1); Lymphocytes # 1.7 K/mcL (0.6-4.6); Lymphocytes % 19.2 %; Mean Corpuscular HGB Conc 32.9 g/dL (31.6-35.5); Mean Corpuscular Hemoglobin 32.7 pg (28.0-33.3); Mean Corpuscular Volume 99.3 fL (83.0-100.0); Mean Platelet Volume 10.5 fL (9.4-12.4); Monocytes # 0.5 K/mcL (0.0-1.3); Monocytes % 5.5 %; Platelet Count 234 K/mcL (140-400); Red Blood Count 4.25 M/mcL (3.82-4.97); Red Cell Distribution Width 13.8 % (11.5-14.5); Segmented Neutrophils % 69.4 %; White Blood Count 8.6 K/mcL (4.3-11.1)
[2020-10-03] MEDS ORDERED: Permethrin CRM 60 GM TUBE TP ONE (02:31)
[2020-10-03 02:36] LABS: Alanine Aminotransferase 13 Units/L (7-52); Albumin 3.2 g/dL (3.5-5.7); Albumin/Globulin Ratio 0.9 (1.1-2.2); Alkaline Phosphatase 68 Units/L (34-104); Aspartate Amino Transferase 44 Units/L (13-39); BUN/Creatinine Ratio 15 (6-26); Bilirubin,Total 0.3 mg/dL (0.3-1.0); Blood Urea Nitrogen 14 mg/dL (8-23); Carbon Dioxide 24 mEq/L (23-29); Chloride 104 mEq/L (98-107); Globulin 3.4 g/dL (2.4-3.5); Glucose 98 mg/dL (70-105); Magnesium 1.8 mg/dL (1.6-2.6); Osmolality,Calculated 284 (280-300); Phosphorous 3.4 mg/dL (2.7-4.5); Potassium 3.8 mEq/L (3.5-5.1); Sodium 137 mEq/L (136-145); Total Protein 6.6 g/dL (6.4-8.9); eGFR For African Americans > 60 (> 60); eGFR For Non-African Americans 57 (> 60)
[2020-10-03] MEDS: Acetaminophen 325 MG TABLET PO PRN ×2 (03:52→13:12)
[2020-10-03] MEDS: *HR* Heparin 5,000 UNIT/ML VIAL SQ SCH ×2 (05:42→18:43)
[2020-10-03] MEDS: cefTRIAXone 1,000 MG in Water for inj. (sterile) 10 ML IVP SCH (10:10)
[2020-10-03] MEDS ORDERED: Gabapentin 300 MG CAPSULE PO PRN (12:44)
[2020-10-03] MEDS ORDERED: Azithromycin 500 MG in D5% in Water 250 ML IVPB SCH (22:00)
[2020-10-03] MEDS: Metoprolol 100 MG TABLET PO SCH (22:22)
[2020-10-04 01:54] LABS: Basophils # 0.1 K/mcL (0.0-0.2); Basophils % 0.5 %; Eosinophils # 0.5 K/mcL (0.0-0.6); Eosinophils % 4.9 %; Hematocrit 41.3 % (35.3-44.9); Hemoglobin 13.4 g/dL (11.5-15.4); Immature Granulocytes % 0.3 % (0-4); Lymphocytes # 1.5 K/mcL (0.6-4.6); Lymphocytes % 14.8 %; Mean Corpuscular HGB Conc 32.4 g/dL (31.6-35.5); Mean Corpuscular Hemoglobin 31.9 pg (28.0-33.3); Mean Corpuscular Volume 98.3 fL (83.0-100.0); Mean Platelet Volume 10.5 fL (9.4-12.4); Monocytes # 0.6 K/mcL (0.0-1.3); Monocytes % 6.4 %; Neutrophils # 7.3 K/mcL (1.6-8.9); Platelet Count 244 K/mcL (140-400); Red Cell Distribution Width 13.6 % (11.5-14.5); Segmented Neutrophils % 73.1 %
[2020-10-04] MEDS: *HR* Heparin 5,000 UNIT/ML VIAL SQ SCH ×2 (05:33→17:51)
[2020-10-04 07:22] LABS: BUN/Creatinine Ratio 17 (6-26); Blood Urea Nitrogen 18 mg/dL (8-23); Calcium 8.8 mg/dL (8.6-10.3); Carbon Dioxide 24 mEq/L (23-29); Chloride 104 mEq/L (98-107); Glucose 102 mg/dL (70-105); Osmolality,Calculated 288 (280-300); Potassium 3.6 mEq/L (3.5-5.1); Sodium 138 mEq/L (136-145); eGFR For African Americans > 60 (> 60); eGFR For Non-African Americans 51 (> 60)
[2020-10-04] MEDS: cefTRIAXone 1,000 MG in Water for inj. (sterile) 10 ML IVP SCH (09:07)
[2020-10-04] MEDS: Metoprolol 100 MG TABLET PO SCH (09:08)
[2020-10-04 15:46] VITALS: BP 117/69
== END 2020-10-04 18:10 | disposition home or self-care (01) ==
LOC: 3NENU 17:56 → EMEROOARM 17:56 → 3NENU 22:55
PROVIDERS: ADMIT Internal Medicine; ATTEND Internal Medicine

== ENCOUNTER 2020-10-07 23:42 | Inpatient (IN) ==
[2020-10-08] MEDS ORDERED: *HR* LORazepam 2 MG/ML VIAL IVP ONE (00:11)
[2020-10-08] MEDS ORDERED: Isovue-370 500 ML BOTTLE IVP ONE ×3 (00:11→04:10)
[2020-10-08 00:12] LABS: Basophils % 0.2 %; Hematocrit 47.9 % (35.3-44.9); Immature Granulocytes % 0.6 % (0-4); Lymphocytes # 2.8 K/mcL (0.6-4.6); Lymphocytes % 16.3 %; Mean Corpuscular HGB Conc 34.7 g/dL (31.6-35.5); Mean Corpuscular Hemoglobin 32.5 pg (28.0-33.3); Mean Corpuscular Volume 93.7 fL (83.0-100.0); Mean Platelet Volume 10.7 fL (9.4-12.4); Monocytes # 1.6 K/mcL (0.0-1.3); Monocytes % 9.5 %; Neutrophils # 12.4 K/mcL (1.6-8.9); Platelet Count 387 K/mcL (140-400); Red Blood Count 5.11 M/mcL (3.82-4.97); Red Cell Distribution Width 13.3 % (11.5-14.5); Segmented Neutrophils % 73.4 %; White Blood Count 16.9 K/mcL (4.3-11.1)
[2020-10-08 00:17] LABS: Hemoglobin 16.6 g/dL (11.5-15.4)
[2020-10-08 00:21] LABS: Bacteria,Urine Few per hpf (None-Few); Bilirubin,Urine Small (Negative); Blood,Urine Trace (Negative); Clarity,Urine Turbid (Clear); Color,Urine Yellow (Yellow); Glucose,Urine (UA) 70 mg/dL (Normal); Hyaline Casts,Urine Many per lpf (None Seen); Ketones,Urine 10 mg/dL (Negative); Leukocyte Esterase,Urine Negative (Negative); Mucus,Urine Many per lpf (None-Few); Nitrite,Urine Negative (Negative); Protein,Urine 200 mg/dL (Neg-Trace); Specific Gravity,Urine 1.025 (1.010-1.025); Squamous Epithelial Cell,Urine Moderate per hpf (None-Few); WBC,Urine 15-30 per hpf (0-3)
[2020-10-08 00:26] LABS: Amphetamine Screen,Urine Negative ng/mL (Cutoff=1000); Barbiturate Screen,Urine Negative ng/mL (Cutoff=200); Benzodiazepines Screen,Urine Positive ng/mL (Cutoff=200); Cannabinoid Screen,Urine Negative ng/mL (Cutoff = 50); Cocaine Screen,Urine Negative ng/mL (Cutoff= 300); Opiate Screen,Urine Negative ng/mL (Cutoff=300); Phencyclidine Screen,Urine Negative ng/mL (Cutoff=25)
[2020-10-08 00:32] LABS: Calcium 12.1 mg/dL (8.6-10.3); Magnesium 1.9 mg/dL (1.6-2.6); Potassium 3.7 mEq/L (3.5-5.1)
[2020-10-08 00:48] LABS: Prothrombin Time 12.1 Seconds (9.4-12.1)
[2020-10-08 00:50] LABS: Activated Partial Thrombo Time 22.4 Seconds (26.0-36.0)
[2020-10-08] MEDS ORDERED: ACYCLOVIR IVPB ONE (02:26)
[2020-10-08] MEDS ORDERED: WATER IVPB ONE (02:26)
[2020-10-08] MEDS ORDERED: D5 IVPB ONE (02:26)
[2020-10-08] MEDS ORDERED: Ampicillin 2 GM in 0.9 % Sodium Chloride Mini Bag 100 ML IVPB ONE (02:29)
[2020-10-08] MEDS ORDERED: cefTRIAXone 2,000 MG in 0.9 % Sodium Chloride Mini Bag 100 ML IVPB ONE (02:29)
[2020-10-08] MEDS ORDERED: Vancomycin 1,500 MG/265 ML IV.SOLN IVPB ONE (02:30)
[2020-10-08] MEDS ORDERED: 0.9 % Sodium Chloride 1,000 ML IVC ONE (02:37)
[2020-10-08] MEDS ORDERED: Ondansetron 4 MG/2 ML VIAL IVP PRN (05:52)
[2020-10-08] MEDS ORDERED: Naloxone 0.4 MG/ML INJ IVP PRN (05:52)
[2020-10-08] MEDS ORDERED: Perflutren Lipid Microsphere 1.3 ML in 0.9 % Sodium Chloride 8.7 ML IVP PRN (05:58)
[2020-10-08] MEDS ORDERED: Ringers Solution, Lactated 1,000 ML IVC ONE (05:59)
[2020-10-08] MEDS ORDERED: Acetaminophen 325 MG TABLET PO PRN (06:00)
[2020-10-08] MEDS ORDERED: Ringers Solution, Lactated 1,000 ML IVC SCH ×2 (06:00→06:06)
[2020-10-08] MEDS ORDERED: *HR* Promethazine 25 MG/ML VIAL IM PRN (06:00)
[2020-10-08] MEDS ORDERED: Ampicillin 2 GM in 0.9 % Sodium Chloride Mini Bag 100 ML IVPB SCH (08:00)
[2020-10-08 08:44] LABS: Basophils % 0.1 %; Hematocrit 46.2 % (35.3-44.9); Hemoglobin 15.4 g/dL (11.5-15.4); Immature Granulocytes % 0.5 % (0-4); Lymphocytes # 2.2 K/mcL (0.6-4.6); Lymphocytes % 14.7 %; Mean Corpuscular HGB Conc 33.3 g/dL (31.6-35.5); Mean Corpuscular Hemoglobin 32.6 pg (28.0-33.3); Mean Corpuscular Volume 97.7 fL (83.0-100.0); Mean Platelet Volume 10.7 fL (9.4-12.4); Monocytes # 1.4 K/mcL (0.0-1.3); Monocytes % 9.2 %; Neutrophils # 11.5 K/mcL (1.6-8.9); Platelet Count 285 K/mcL (140-400); Red Blood Count 4.73 M/mcL (3.82-4.97); Red Cell Distribution Width 13.4 % (11.5-14.5); Segmented Neutrophils % 75.5 %; White Blood Count 15.3 K/mcL (4.3-11.1)
[2020-10-08] MEDS ORDERED: *HR* Metoprolol 5 MG/5 ML VIAL IVP ONE ×2 (08:50→08:53)
[2020-10-08 08:52] LABS: INR 1.2; Prothrombin Time 14.3 Seconds (9.4-12.1)
[2020-10-08] MEDS ORDERED: 0.9 % Sodium Chloride 1,000 ML ONE (08:53)
[2020-10-08] MEDS ORDERED: 0.9 % Sodium Chloride 1,000 ML IVC SCH (09:00)
[2020-10-08 09:16] LABS: Estimated Average Glucose 120 mg/dl; Hemoglobin A1C 5.8 %
[2020-10-08 09:28] LABS: Chloride 97 mEq/L (98-107); Potassium 3.1 mEq/L (3.5-5.1); Sodium 134 mEq/L (136-145); Troponin I 0.06 ng/mL (< 0.04)
[2020-10-08 09:49] LABS: Alanine Aminotransferase 90 Units/L (7-52); Albumin 3.5 g/dL (3.5-5.7); Alkaline Phosphatase 67 Units/L (34-104); Aspartate Amino Transferase 126 Units/L (13-39); BUN/Creatinine Ratio 25 (6-26); Bilirubin,Total 1.1 mg/dL (0.3-1.0); Blood Urea Nitrogen 26 mg/dL (8-23); Calcium 10.1 mg/dL (8.6-10.3); Carbon Dioxide 21 mEq/L (23-29); Globulin 3.6 g/dL (2.4-3.5); Glucose 128 mg/dL (70-105); Magnesium 1.7 mg/dL (1.6-2.6); Osmolality,Calculated 284 (280-300); Phosphorous 2.5 mg/dL (2.7-4.5); Total Protein 7.1 g/dL (6.4-8.9); eGFR For African Americans > 60 (> 60); eGFR For Non-African Americans 53 (> 60)
[2020-10-08] MEDS ORDERED: Potassium Phosphate 44 MEQ in 0.9 % Sodium Chloride 250 ML IVPB ONE (10:59)
[2020-10-08] MEDS ORDERED: Acyclovir 500 MG in D5% in Water 100 ML IVPB SCH (11:00)
[2020-10-08] MEDS: cefTRIAXone 2,000 MG in Water for inj. (sterile) 20 ML IVP SCH ×2 (11:33→18:25)
[2020-10-08] MEDS: Aspirin Enteric Coated 325 MG Tablet PO SCH (11:34)
[2020-10-08] MEDS: Ampicillin 2 GM in 0.9 % Sodium Chloride Mini Bag 100 ML IVPB SCH ×3 (11:43→23:56)
[2020-10-08 14:09] LABS: Adenovirus Not Detected (Not Detect); Bordetella Pertussis Not Detected (Not Detect); Chlamydophila pneumoniae Not Detected (Not Detect); Coronavirus 229E Not Detected (Not Detect); Coronavirus HKU1 Not Detected (Not Detect); Coronavirus NL63 Not Detected (Not Detect); Coronavirus OC43 Not Detected (Not Detect); Human Metapneumovirus Not Detected (Not Detect); Human Rhinovirus/Enterovirus Not Detected (Not Detect); Influenza A Subtype 2009 H1 Not Detected (Not Detect); Influenza B Not Detected (Not Detect); Mycoplasma pneumoniae Not Detected (Not Detect); Parainfluenza Virus 1 Not Detected (Not Detect); Parainfluenza Virus 2 Not Detected (Not Detect); Parainfluenza Virus 3 Not Detected (Not Detect); Parainfluenza Virus 4 Not Detected (Not Detect); Respiratory Syncytial Virus Not Detected (Not Detect); SARS-CoV-2 Not Detected (Not Detect)
[2020-10-08] MEDS: Acyclovir 500 MG in D5% in Water 100 ML IVPB SCH (17:30)
[2020-10-08 18:07] LABS: Troponin I 0.06 ng/mL (< 0.04)
[2020-10-08] MEDS ORDERED: levETIRAcetam 1,000 MG in 0.9 % Sodium Chloride 100 ML IVPB ONE (19:30)
[2020-10-09] MEDS ORDERED: Permethrin Cream Rinse 60 ML LIQUID TP ONE (00:43)
[2020-10-09] MEDS: Acyclovir 500 MG in D5% in Water 100 ML IVPB SCH ×2 (03:52→14:47)
[2020-10-09] MEDS: cefTRIAXone 2,000 MG in Water for inj. (sterile) 20 ML IVP SCH ×2 (05:30→17:13)
[2020-10-09] MEDS: Ampicillin 2 GM in 0.9 % Sodium Chloride Mini Bag 100 ML IVPB SCH ×3 (05:30→17:14)
[2020-10-09] MEDS ORDERED: Gadolinium Contrast Agent (WT Based) IV PRN (08:04)
[2020-10-09 08:45] LABS: Basophils % 0.4 %; Eosinophils # 0.1 K/mcL (0.0-0.6); Eosinophils % 0.8 %; Hematocrit 37.5 % (35.3-44.9); Immature Granulocytes % 0.8 % (0-4); Lymphocytes # 1.5 K/mcL (0.6-4.6); Lymphocytes % 19.1 %; Mean Corpuscular HGB Conc 33.1 g/dL (31.6-35.5); Mean Corpuscular Volume 96.6 fL (83.0-100.0); Mean Platelet Volume 10.6 fL (9.4-12.4); Monocytes # 0.7 K/mcL (0.0-1.3); Monocytes % 8.4 %; Neutrophils # 5.6 K/mcL (1.6-8.9); Platelet Count 204 K/mcL (140-400); Red Blood Count 3.88 M/mcL (3.82-4.97); Red Cell Distribution Width 13.5 % (11.5-14.5); Segmented Neutrophils % 70.5 %; White Blood Count 7.9 K/mcL (4.3-11.1)
[2020-10-09] MEDS: Aspirin Enteric Coated 325 MG Tablet PO SCH (09:01)
[2020-10-09 09:03] LABS: Hemoglobin 12.4 g/dL (11.5-15.4)
[2020-10-09 09:17] LABS: Alanine Aminotransferase 112 Units/L (7-52); Alkaline Phosphatase 56 Units/L (34-104); Aspartate Amino Transferase 117 Units/L (13-39); BUN/Creatinine Ratio 24 (6-26); Bilirubin,Total 0.5 mg/dL (0.3-1.0); Blood Urea Nitrogen 25 mg/dL (8-23); Calcium 8.4 mg/dL (8.6-10.3); Carbon Dioxide 27 mEq/L (23-29); Chloride 105 mEq/L (98-107); Glucose 95 mg/dL (70-105); Osmolality,Calculated 300 (280-300); Potassium 3.2 mEq/L (3.5-5.1); Sodium 143 mEq/L (136-145); Troponin I 0.05 ng/mL (< 0.04); eGFR For African Americans > 60 (> 60); eGFR For Non-African Americans 52 (> 60)
[2020-10-09] MEDS ORDERED: *HR* LORazepam 2 MG/ML VIAL IVP ONE (09:35)
[2020-10-09] MEDS ORDERED: Potassium Chloride 40 MEQ, Lidocaine 1% 2 ML in 0.9 % Sodium Chloride 500 ML IVPB ONE (11:20)
[2020-10-09] MEDS: *HR* Heparin 5,000 UNIT/ML VIAL SQ SCH ×2 (14:48→22:54)
[2020-10-10] MEDS: Ampicillin 2 GM in 0.9 % Sodium Chloride Mini Bag 100 ML IVPB SCH ×4 (01:14→17:38)
[2020-10-10 02:12] LABS: Basophils % 0.4 %; Eosinophils # 0.1 K/mcL (0.0-0.6); Eosinophils % 2.1 %; Hematocrit 35.5 % (35.3-44.9); Hemoglobin 11.6 g/dL (11.5-15.4); Immature Granulocytes % 0.2 % (0-4); Lymphocytes # 1.3 K/mcL (0.6-4.6); Lymphocytes % 23.7 %; Mean Corpuscular HGB Conc 32.7 g/dL (31.6-35.5); Mean Corpuscular Hemoglobin 32.8 pg (28.0-33.3); Mean Corpuscular Volume 100.3 fL (83.0-100.0); Mean Platelet Volume 11.4 fL (9.4-12.4); Monocytes # 0.4 K/mcL (0.0-1.3); Monocytes % 6.9 %; Neutrophils # 3.8 K/mcL (1.6-8.9); Platelet Count 161 K/mcL (140-400); Red Blood Count 3.54 M/mcL (3.82-4.97); Red Cell Distribution Width 13.2 % (11.5-14.5); Segmented Neutrophils % 66.7 %; White Blood Count 5.7 K/mcL (4.3-11.1)
[2020-10-10 02:36] LABS: BUN/Creatinine Ratio 30 (6-26); Blood Urea Nitrogen 25 mg/dL (8-23); Calcium 8.1 mg/dL (8.6-10.3); Carbon Dioxide 23 mEq/L (23-29); Chloride 109 mEq/L (98-107); Glucose 79 mg/dL (70-105); Osmolality,Calculated 297 (280-300); Potassium 3.5 mEq/L (3.5-5.1); Sodium 142 mEq/L (136-145); eGFR For African Americans > 60 (> 60); eGFR For Non-African Americans > 60 (> 60)
[2020-10-10] MEDS: Acyclovir 500 MG in D5% in Water 100 ML IVPB SCH ×2 (05:11→15:12)
[2020-10-10] MEDS: *HR* Heparin 5,000 UNIT/ML VIAL SQ SCH ×3 (06:00→21:20)
[2020-10-10] MEDS: cefTRIAXone 2,000 MG in Water for inj. (sterile) 20 ML IVP SCH ×2 (06:00→17:37)
[2020-10-10] MEDS: Aspirin Enteric Coated 325 MG Tablet PO SCH (09:35)
[2020-10-11] MEDS: Ampicillin 2 GM in 0.9 % Sodium Chloride Mini Bag 100 ML IVPB SCH ×3 (00:04→11:37)
[2020-10-11] MEDS: Acyclovir 500 MG in D5% in Water 100 ML IVPB SCH ×2 (04:24→16:15)
[2020-10-11 05:54] LABS: Basophils % 0.5 %; Eosinophils # 0.2 K/mcL (0.0-0.6); Eosinophils % 3.5 %; Hematocrit 35.1 % (35.3-44.9); Hemoglobin 11.6 g/dL (11.5-15.4); Immature Granulocytes % 0.3 % (0-4); Lymphocytes # 1.6 K/mcL (0.6-4.6); Mean Corpuscular Hemoglobin 32.4 pg (28.0-33.3); Mean Platelet Volume 10.4 fL (9.4-12.4); Monocytes # 0.4 K/mcL (0.0-1.3); Monocytes % 6.7 %; Neutrophils # 4.3 K/mcL (1.6-8.9); Platelet Count 189 K/mcL (140-400); Red Blood Count 3.58 M/mcL (3.82-4.97); Red Cell Distribution Width 12.8 % (11.5-14.5); White Blood Count 6.6 K/mcL (4.3-11.1)
[2020-10-11] MEDS: cefTRIAXone 2,000 MG in Water for inj. (sterile) 20 ML IVP SCH (05:59)
[2020-10-11] MEDS: *HR* Heparin 5,000 UNIT/ML VIAL SQ SCH ×3 (06:00→21:37)
[2020-10-11 06:16] LABS: Alanine Aminotransferase 52 Units/L (7-52); Albumin/Globulin Ratio 1.1 (1.1-2.2); Alkaline Phosphatase 61 Units/L (34-104); Aspartate Amino Transferase 34 Units/L (13-39); BUN/Creatinine Ratio 25 (6-26); Bilirubin,Total 0.5 mg/dL (0.3-1.0); Blood Urea Nitrogen 21 mg/dL (8-23); Carbon Dioxide 22 mEq/L (23-29); Chloride 106 mEq/L (98-107); Globulin 2.8 g/dL (2.4-3.5); Glucose 107 mg/dL (70-105); Osmolality,Calculated 289 (280-300); Potassium 3.5 mEq/L (3.5-5.1); Sodium 138 mEq/L (136-145); Total Protein 5.8 g/dL (6.4-8.9); eGFR For African Americans > 60 (> 60); eGFR For Non-African Americans > 60 (> 60)
[2020-10-11] MEDS: Aspirin Enteric Coated 325 MG Tablet PO SCH (09:07)
[2020-10-11] MEDS ORDERED: Permethrin Cream Rinse 60 ML LIQUID TP ONE (10:00)
[2020-10-11] MEDS ORDERED: Ampicillin 2 GM VIAL ONE (11:29)
[2020-10-12] MEDS: Acyclovir 500 MG in D5% in Water 100 ML IVPB SCH ×2 (04:07→15:31)
[2020-10-12] MEDS: *HR* Heparin 5,000 UNIT/ML VIAL SQ SCH ×3 (05:13→21:04)
[2020-10-12] MEDS: Aspirin Enteric Coated 325 MG Tablet PO SCH ×2 (07:51→08:30)
[2020-10-12 09:21] LABS: Basophils % 0.4 %; Eosinophils # 0.3 K/mcL (0.0-0.6); Eosinophils % 3.8 %; Hematocrit 36.8 % (35.3-44.9); Hemoglobin 12.2 g/dL (11.5-15.4); Immature Granulocytes % 0.6 % (0-4); Lymphocytes # 1.7 K/mcL (0.6-4.6); Lymphocytes % 25.3 %; Mean Corpuscular HGB Conc 33.2 g/dL (31.6-35.5); Mean Corpuscular Hemoglobin 32.1 pg (28.0-33.3); Mean Corpuscular Volume 96.8 fL (83.0-100.0); Mean Platelet Volume 11.7 fL (9.4-12.4); Monocytes # 0.4 K/mcL (0.0-1.3); Monocytes % 6.1 %; Neutrophils # 4.4 K/mcL (1.6-8.9); Platelet Count 174 K/mcL (140-400); Red Cell Distribution Width 12.8 % (11.5-14.5); Segmented Neutrophils % 63.8 %; White Blood Count 6.9 K/mcL (4.3-11.1)
[2020-10-12 10:06] LABS: BUN/Creatinine Ratio 18 (6-26); Blood Urea Nitrogen 14 mg/dL (8-23); Calcium 8.2 mg/dL (8.6-10.3); Carbon Dioxide 20 mEq/L (23-29); Chloride 103 mEq/L (98-107); Glucose 90 mg/dL (70-105); Osmolality,Calculated 282 (280-300); Potassium 3.1 mEq/L (3.5-5.1); Sodium 136 mEq/L (136-145); eGFR For African Americans > 60 (> 60); eGFR For Non-African Americans > 60 (> 60)
[2020-10-12] MEDS ORDERED: *HR* LORazepam 2 MG/ML VIAL IVP ONE ×2 (17:19→22:10)
[2020-10-12] MEDS ORDERED: *HR* LORazepam 2 MG/ML VIAL ONE (17:20)
[2020-10-13 01:31] LABS: Basophils % 0.5 %; Eosinophils # 0.3 K/mcL (0.0-0.6); Eosinophils % 3.9 %; Hematocrit 37.4 % (35.3-44.9); Hemoglobin 12.4 g/dL (11.5-15.4); Immature Granulocytes % 0.4 % (0-4); Lymphocytes # 1.9 K/mcL (0.6-4.6); Lymphocytes % 24.6 %; Mean Corpuscular HGB Conc 33.2 g/dL (31.6-35.5); Mean Corpuscular Hemoglobin 32.9 pg (28.0-33.3); Mean Corpuscular Volume 99.2 fL (83.0-100.0); Mean Platelet Volume 11.4 fL (9.4-12.4); Monocytes # 0.7 K/mcL (0.0-1.3); Monocytes % 8.8 %; Neutrophils # 4.8 K/mcL (1.6-8.9); Platelet Count 169 K/mcL (140-400); Red Blood Count 3.77 M/mcL (3.82-4.97); Red Cell Distribution Width 12.6 % (11.5-14.5); Segmented Neutrophils % 61.8 %; White Blood Count 7.7 K/mcL (4.3-11.1)
[2020-10-13 02:13] LABS: BUN/Creatinine Ratio 12 (6-26); Blood Urea Nitrogen 10 mg/dL (8-23); Calcium 8.2 mg/dL (8.6-10.3); Carbon Dioxide 21 mEq/L (23-29); Chloride 106 mEq/L (98-107); Glucose 89 mg/dL (70-105); Osmolality,Calculated 283 (280-300); Potassium 3.5 mEq/L (3.5-5.1); Sodium 137 mEq/L (136-145); eGFR For African Americans > 60 (> 60); eGFR For Non-African Americans > 60 (> 60)
[2020-10-13] MEDS: Acyclovir 500 MG in D5% in Water 100 ML IVPB SCH ×2 (08:05→15:34)
[2020-10-13] MEDS: *HR* Heparin 5,000 UNIT/ML VIAL SQ SCH ×3 (08:05→20:15)
[2020-10-13] MEDS: Aspirin Enteric Coated 325 MG Tablet PO SCH (09:40)
[2020-10-14] MEDS: Acyclovir 500 MG in D5% in Water 100 ML IVPB SCH ×2 (03:53→16:38)
[2020-10-14] MEDS: *HR* Heparin 5,000 UNIT/ML VIAL SQ SCH ×3 (04:47→21:53)
[2020-10-14 06:06] LABS: Basophils % 0.7 %; Eosinophils # 0.2 K/mcL (0.0-0.6); Hematocrit 36.3 % (35.3-44.9); Hemoglobin 11.8 g/dL (11.5-15.4); Immature Granulocytes % 0.5 % (0-4); Lymphocytes # 1.4 K/mcL (0.6-4.6); Lymphocytes % 24.9 %; Mean Corpuscular HGB Conc 32.5 g/dL (31.6-35.5); Mean Corpuscular Hemoglobin 33.1 pg (28.0-33.3); Mean Corpuscular Volume 101.7 fL (83.0-100.0); Mean Platelet Volume 11.6 fL (9.4-12.4); Monocytes # 0.5 K/mcL (0.0-1.3); Monocytes % 8.9 %; Neutrophils # 3.5 K/mcL (1.6-8.9); Platelet Count 152 K/mcL (140-400); Red Blood Count 3.57 M/mcL (3.82-4.97); White Blood Count 5.7 K/mcL (4.3-11.1)
[2020-10-14 06:15] LABS: BUN/Creatinine Ratio 14 (6-26); Blood Urea Nitrogen 10 mg/dL (8-23); Carbon Dioxide 21 mEq/L (23-29); Chloride 107 mEq/L (98-107); Glucose 105 mg/dL (70-105); Magnesium 1.8 mg/dL (1.6-2.6); Osmolality,Calculated 285 (280-300); Phosphorous 1.7 mg/dL (2.7-4.5); Potassium 3.2 mEq/L (3.5-5.1); Sodium 138 mEq/L (136-145); eGFR For African Americans > 60 (> 60); eGFR For Non-African Americans > 60 (> 60)
[2020-10-14] MEDS ORDERED: Potassium Phosphate 44 MEQ in 0.9 % Sodium Chloride 250 ML IVPB ONE (07:23)
[2020-10-14] MEDS: Aspirin Enteric Coated 325 MG Tablet PO SCH (09:55)
[2020-10-14] MEDS: Melatonin 3 MG TABLET PO SCH (21:54)
[2020-10-15 04:26] LABS: BUN/Creatinine Ratio 9 (6-26); Blood Urea Nitrogen 7 mg/dL (8-23); Carbon Dioxide 21 mEq/L (23-29); Chloride 108 mEq/L (98-107); Glucose 128 mg/dL (70-105); Osmolality,Calculated 286 (280-300); Phosphorous 2.2 mg/dL (2.7-4.5); Sodium 138 mEq/L (136-145); eGFR For African Americans > 60 (> 60); eGFR For Non-African Americans > 60 (> 60)
[2020-10-15] MEDS: Acyclovir 500 MG in D5% in Water 100 ML IVPB SCH ×2 (06:14→16:39)
[2020-10-15] MEDS: *HR* Heparin 5,000 UNIT/ML VIAL SQ SCH ×3 (06:14→21:00)
[2020-10-15] MEDS ORDERED: Potassium Phosphate 44 MEQ in 0.9 % Sodium Chloride 250 ML IVPB ONE (07:25)
[2020-10-15] MEDS: Aspirin Enteric Coated 325 MG Tablet PO SCH (08:07)
[2020-10-15] MEDS: Melatonin 3 MG TABLET PO SCH (20:59)
[2020-10-15] MEDS ORDERED: QUEtiapine Fumarate 25 MG TABLET PO SCH (21:00)
[2020-10-16 03:30] LABS: Basophils # 0.1 K/mcL (0.0-0.2); Basophils % 0.8 %; Eosinophils # 0.2 K/mcL (0.0-0.6); Eosinophils % 3.9 %; Hematocrit 32.9 % (35.3-44.9); Immature Granulocytes % 0.5 % (0-4); Lymphocytes # 1.9 K/mcL (0.6-4.6); Lymphocytes % 32.5 %; Mean Corpuscular HGB Conc 33.4 g/dL (31.6-35.5); Mean Corpuscular Hemoglobin 32.7 pg (28.0-33.3); Mean Corpuscular Volume 97.9 fL (83.0-100.0); Mean Platelet Volume 11.6 fL (9.4-12.4); Monocytes # 0.6 K/mcL (0.0-1.3); Monocytes % 9.7 %; Neutrophils # 3.1 K/mcL (1.6-8.9); Platelet Count 196 K/mcL (140-400); Red Blood Count 3.36 M/mcL (3.82-4.97); Red Cell Distribution Width 13.3 % (11.5-14.5); Segmented Neutrophils % 52.6 %; White Blood Count 5.9 K/mcL (4.3-11.1)
[2020-10-16 03:46] LABS: BUN/Creatinine Ratio 8 (6-26); Blood Urea Nitrogen 7 mg/dL (8-23); Calcium 7.9 mg/dL (8.6-10.3); Carbon Dioxide 22 mEq/L (23-29); Chloride 112 mEq/L (98-107); Glucose 104 mg/dL (70-105); Magnesium 1.8 mg/dL (1.6-2.6); Osmolality,Calculated 290 (280-300); Phosphorous 2.7 mg/dL (2.7-4.5); Potassium 3.7 mEq/L (3.5-5.1); Sodium 141 mEq/L (136-145); eGFR For African Americans > 60 (> 60); eGFR For Non-African Americans > 60 (> 60)
[2020-10-16] MEDS: Acyclovir 500 MG in D5% in Water 100 ML IVPB SCH (04:52)
[2020-10-16] MEDS: *HR* Heparin 5,000 UNIT/ML VIAL SQ SCH (05:00)
[2020-10-16 07:45] VITALS: BP 132/77
[2020-10-16] MEDS: Aspirin Enteric Coated 325 MG Tablet PO SCH (08:21)
== END 2020-10-16 12:20 | disposition home or self-care (01) | DRG 871 ==
LOC: EMEROOARM 23:42 → 3NENU 23:42 → 2NNU 10-08 06:30 → SUATTDRO 10-09 15:06 → 3ANU 10-13 17:01
PROVIDERS: ADMIT Internal Medicine; ATTEND Internal Medicine

== ENCOUNTER 2021-06-16 15:12 | Inpatient (IN) ==
[2021-06-16] MEDS ORDERED: Naloxone 0.4 MG/ML INJ IVP PRN (19:32)
[2021-06-16] MEDS ORDERED: Acetaminophen 325 MG TABLET PO PRN (19:32)
[2021-06-16] MEDS ORDERED: Ipratropium/Albuterol Neb 3 ML IH PRN (19:35)
[2021-06-16] MEDS ORDERED: Perflutren Lipid Microsphere 1.3 ML in 0.9 % Sodium Chloride 8.7 ML IVP PRN (19:38)
[2021-06-16] MEDS ORDERED: *HR* Dextrose 50 % in Water (Syg) 50 ML SYRINGE IVP PRN (19:40)
[2021-06-16] MEDS ORDERED: Dextrose Gel 15 GM/37.5 ML TUBE PO PRN ×2 (19:40)
[2021-06-16] MEDS ORDERED: D5% in Water 1,000 ML IVC PRN (19:40)
[2021-06-16] MEDS: Pantoprazole 40 MG in 0.9 % Sodium Chloride Mini Bag 100 ML IVC SCH (20:18)
[2021-06-16 21:03] LABS: Calcium 8.2 mg/dL (8.6-10.3); Potassium 3.7 mEq/L (3.5-5.1)
[2021-06-16 21:12] LABS: Troponin I 0.05 ng/mL (< 0.04)
[2021-06-16] MEDS: Insulin LISPRO 300 UNITS/3 ML VIAL SUBQ SCH ×2 (21:27)
[2021-06-16] MEDS ORDERED: *HR* HYDROmorphone (PF) 1 MG/ML SYRINGE IVP PRN (21:37)
[2021-06-16 22:06] LABS: Adenovirus Not Detected (Not Detect); Bordetella Pertussis Not Detected (Not Detect); Chlamydophila pneumoniae Not Detected (Not Detect); Coronavirus 229E Not Detected (Not Detect); Coronavirus HKU1 Not Detected (Not Detect); Coronavirus NL63 Not Detected (Not Detect); Coronavirus OC43 Not Detected (Not Detect); Human Metapneumovirus Not Detected (Not Detect); Human Rhinovirus/Enterovirus Not Detected (Not Detect); Influenza A Subtype 2009 H1 Not Detected (Not Detect); Influenza B Not Detected (Not Detect); Mycoplasma pneumoniae Not Detected (Not Detect); Parainfluenza Virus 1 Not Detected (Not Detect); Parainfluenza Virus 2 Not Detected (Not Detect); Parainfluenza Virus 3 Not Detected (Not Detect); Parainfluenza Virus 4 Not Detected (Not Detect); Respiratory Syncytial Virus Not Detected (Not Detect); SARS-CoV-2 Not Detected (Not Detect)
[2021-06-16] MEDS: 0.9 % Sodium Chloride 1,000 ML IVC SCH (22:11)
[2021-06-16] MEDS: DilTIAZem 50 MG/50 ML IV.SOLN IVC SCH (22:32)
[2021-06-17 02:25] LABS: Basophils % 0.2 %; Hematocrit 31.7 % (35.3-44.9); Hemoglobin 9.9 g/dL (11.5-15.4); Immature Granulocytes % 0.5 % (0-4); Lymphocytes # 2.3 K/mcL (0.6-4.6); Lymphocytes % 15.1 %; Mean Corpuscular HGB Conc 31.2 g/dL (31.6-35.5); Mean Corpuscular Hemoglobin 26.5 pg (28.0-33.3); Mean Platelet Volume 9.6 fL (9.4-12.4); Monocytes # 1.4 K/mcL (0.0-1.3); Neutrophils # 11.3 K/mcL (1.6-8.9); Platelet Count 262 K/mcL (140-400); Red Blood Count 3.73 M/mcL (3.82-4.97); Red Cell Distribution Width 17.4 % (11.5-14.5); Segmented Neutrophils % 75.2 %
[2021-06-17] MEDS: DilTIAZem 50 MG/50 ML IV.SOLN IVC SCH (02:38)
[2021-06-17 02:48] LABS: BUN/Creatinine Ratio 28 (6-26); Blood Urea Nitrogen 28 mg/dL (8-23); Calcium 7.7 mg/dL (8.6-10.3); Carbon Dioxide 26 mEq/L (23-29); Chloride 103 mEq/L (98-107); Chol/HDL Ratio 3.1 (0-4.9); Cholesterol 84 mg/dL (< 200); Glucose 128 mg/dL (70-105); HDL Cholesterol 27 mg/dL (40-59); LDL Cholesterol,Calculated 33 mg/dL (< 100); Magnesium 1.6 mg/dL (1.6-2.6); Osmolality,Calculated 291 (280-300); Phosphorous 3.2 mg/dL (2.7-4.5); Potassium 4.1 mEq/L (3.5-5.1); Sodium 137 mEq/L (136-145); Triglycerides 122 mg/dL (< 150); eGFR For African Americans > 60 (> 60); eGFR For Non-African Americans 55 (> 60)
[2021-06-17 02:59] LABS: Thyroid Stimulating Hormone 0.725 mcIU/mL (0.340-5.600)
[2021-06-17] MEDS: Pantoprazole 40 MG in 0.9 % Sodium Chloride Mini Bag 100 ML IVC SCH ×3 (03:18→14:44)
[2021-06-17] MEDS: Piperacillin/Tazobactam 3.375 GM in 0.9 % Sodium Chloride Mini Bag 100 ML IVPB SCH ×3 (03:20→16:36)
[2021-06-17] MEDS ORDERED: ALPRAZolam 1 MG TABLET PO PRN (07:46)
[2021-06-17] MEDS: Ondansetron 4 MG/2 ML VIAL IVP PRN (08:46)
[2021-06-17 08:50] LABS: Estimated Average Glucose 143 mg/dl; Hemoglobin A1C 6.6 %
[2021-06-17] MEDS: Insulin LISPRO 300 UNITS/3 ML VIAL SUBQ SCH ×4 (08:51→20:45)
[2021-06-17] MEDS: Ascorbic Acid 500 MG TABLET PO SCH (08:53)
[2021-06-17] MEDS: Cholecalciferol (D-3) 1,000 UNIT (25MCG) TABLET PO SCH (08:53)
[2021-06-17] MEDS: 0.9 % Sodium Chloride 1,000 ML IVC SCH ×2 (09:12→21:03)
[2021-06-17 09:33] LABS: Basophils % 0.2 %; Eosinophils % 0.1 %; Immature Granulocytes % 0.5 % (0-4); Lymphocytes % 14.3 %; Mean Corpuscular HGB Conc 31.3 g/dL (31.6-35.5); Mean Corpuscular Hemoglobin 26.5 pg (28.0-33.3); Mean Corpuscular Volume 84.7 fL (83.0-100.0); Mean Platelet Volume 9.6 fL (9.4-12.4); Monocytes % 7.4 %; Neutrophils # 10.8 K/mcL (1.6-8.9); Platelet Count 258 K/mcL (140-400); Red Blood Count 3.78 M/mcL (3.82-4.97); Red Cell Distribution Width 17.3 % (11.5-14.5); Segmented Neutrophils % 77.5 %; White Blood Count 13.9 K/mcL (4.3-11.1)
[2021-06-17] MEDS ORDERED: *HR* Propofol 200 MG/20 ML VIAL IVP ONE (09:53)
[2021-06-17] MEDS ORDERED: Lidocaine -MPF 2% 5 ML VIAL ONE (09:53)
[2021-06-17] MEDS ORDERED: Ondansetron 4 MG/2 ML VIAL ONE (10:18)
[2021-06-17] MEDS ORDERED: *HR* Succinylcholine 200 MG/10 ML VIAL IVP ONE (10:25)
[2021-06-17] MEDS ORDERED: Albuterol 2.5 MG/3 ML NEBULIZER IH PRN (10:34)
[2021-06-17] MEDS ORDERED: Ondansetron 4 MG/2 ML VIAL IVP PRN (10:34)
[2021-06-17] MEDS ORDERED: *HR* FentaNYL (PF) 100 MCG/2 ML VIAL IVP PRN (10:34)
[2021-06-17] MEDS ORDERED: *HR* HYDROcodone/Acet 10/325 mg TABLET PO PRN (11:17)
[2021-06-17] MEDS: Sucralfate 1 GM TABLET PO SCH ×3 (12:33→20:39)
[2021-06-17 13:58] LABS: Hematocrit 26.7 % (35.3-44.9)
[2021-06-17 14:03] LABS: Hemoglobin 8.3 g/dL (11.5-15.4)
[2021-06-17] MEDS: Gabapentin 300 MG CAPSULE PO SCH ×2 (14:44→20:38)
[2021-06-17] MEDS ORDERED: *HR* HYDROmorphone (PF) 1 MG/ML SYRINGE IVP PRN (15:15)
[2021-06-17] MEDS: Pantoprazole 40 MG VIAL IVP SCH (16:39)
[2021-06-17] MEDS: QUEtiapine Fumarate 25 MG TABLET PO SCH (20:38)
[2021-06-17] MEDS: *HR* HYDROcodone/Acet 10/325 mg TABLET PO PRN (20:43)
[2021-06-17 21:14] LABS: Hematocrit 30.4 % (35.3-44.9); Hemoglobin 9.5 g/dL (11.5-15.4)
[2021-06-17] MEDS ORDERED: 0.9 % Sodium Chloride 500 ML IVC ONE (22:36)
[2021-06-17] MEDS ORDERED: 0.9 % Sodium Chloride 500 ML IVC PRN (22:38)
[2021-06-18] MEDS: Piperacillin/Tazobactam 3.375 GM in 0.9 % Sodium Chloride Mini Bag 100 ML IVPB SCH (00:06)
[2021-06-18 01:40] LABS: Basophils % 0.4 %; Eosinophils # 0.1 K/mcL (0.0-0.6); Eosinophils % 1.4 %; Hematocrit 28.7 % (35.3-44.9); Hemoglobin 8.9 g/dL (11.5-15.4); Immature Granulocytes % 0.3 % (0-4); Lymphocytes # 2.4 K/mcL (0.6-4.6); Lymphocytes % 26.6 %; Mean Corpuscular Hemoglobin 27.3 pg (28.0-33.3); Mean Platelet Volume 9.6 fL (9.4-12.4); Monocytes # 0.7 K/mcL (0.0-1.3); Monocytes % 7.4 %; Neutrophils # 5.8 K/mcL (1.6-8.9); Platelet Count 241 K/mcL (140-400); Red Blood Count 3.26 M/mcL (3.82-4.97); Red Cell Distribution Width 17.2 % (11.5-14.5); Segmented Neutrophils % 63.9 %; White Blood Count 9.1 K/mcL (4.3-11.1)
[2021-06-18 02:08] LABS: BUN/Creatinine Ratio 18 (6-26); Blood Urea Nitrogen 19 mg/dL (8-23); Calcium 7.6 mg/dL (8.6-10.3); Carbon Dioxide 22 mEq/L (23-29); Chloride 108 mEq/L (98-107); Glucose 143 mg/dL (70-105); Osmolality,Calculated 297 (280-300); Phosphorous 2.3 mg/dL (2.7-4.5); Potassium 3.5 mEq/L (3.5-5.1); Sodium 141 mEq/L (136-145); eGFR For African Americans > 60 (> 60); eGFR For Non-African Americans 50 (> 60)
[2021-06-18] MEDS ORDERED: Glucagon, Human Recombinant 12 MG in 0.9 % Sodium Chloride 238 ML IVC SCH (04:00)
[2021-06-18] MEDS: 0.9 % Sodium Chloride 1,000 ML IVC SCH ×2 (04:34→17:18)
[2021-06-18] MEDS: Pantoprazole 40 MG VIAL IVP SCH ×2 (06:06→16:42)
[2021-06-18] MEDS: Insulin LISPRO 300 UNITS/3 ML VIAL SUBQ SCH ×4 (08:05→20:02)
[2021-06-18] MEDS: Sucralfate 1 GM TABLET PO SCH ×4 (08:06→21:10)
[2021-06-18] MEDS: Cholecalciferol (D-3) 1,000 UNIT (25MCG) TABLET PO SCH (08:06)
[2021-06-18] MEDS: Ascorbic Acid 500 MG TABLET PO SCH (08:06)
[2021-06-18] MEDS: Gabapentin 300 MG CAPSULE PO SCH ×3 (08:06→21:09)
[2021-06-18] MEDS ORDERED: *HR* Heparin 5,000 UNIT/ML VIAL IVP ONE (11:36)
[2021-06-18] MEDS ORDERED: *HR* Heparin 5,000 UNIT/ML VIAL IVP PRN ×2 (11:36)
[2021-06-18] MEDS ORDERED: Heparin 25,000UNIT/250ML 1/2NS 25,000 UNIT/250 ML IV.SOLN IVC SCH (11:45)
[2021-06-18 12:37] LABS: Hematocrit 34.5 % (35.3-44.9); Hemoglobin 10.3 g/dL (11.5-15.4)
[2021-06-18 12:47] LABS: Heparin anti-factor XA UFH < 0.04 IU/mL (0.30-0.70); Prothrombin Time 11.3 Seconds (9.4-12.1)
[2021-06-18] MEDS: Ondansetron 4 MG/2 ML VIAL IVP PRN (14:01)
[2021-06-18] MEDS: amLODIPine 5 MG TABLET PO SCH (15:17)
[2021-06-18] MEDS: QUEtiapine Fumarate 25 MG TABLET PO SCH (21:10)
[2021-06-19 04:20] LABS: Hematocrit 29.3 % (35.3-44.9); Hemoglobin 9.2 g/dL (11.5-15.4); Mean Corpuscular HGB Conc 31.4 g/dL (31.6-35.5); Mean Corpuscular Hemoglobin 27.4 pg (28.0-33.3); Mean Corpuscular Volume 87.2 fL (83.0-100.0); Mean Platelet Volume 9.9 fL (9.4-12.4); Platelet Count 214 K/mcL (140-400); Red Blood Count 3.36 M/mcL (3.82-4.97); Red Cell Distribution Width 17.2 % (11.5-14.5); White Blood Count 6.2 K/mcL (4.3-11.1)
[2021-06-19 04:23] LABS: BUN/Creatinine Ratio 18 (6-26); Blood Urea Nitrogen 14 mg/dL (8-23); Calcium 7.6 mg/dL (8.6-10.3); Carbon Dioxide 22 mEq/L (23-29); Chloride 110 mEq/L (98-107); Glucose 96 mg/dL (70-105); Osmolality,Calculated 288 (280-300); Potassium 3.4 mEq/L (3.5-5.1); Sodium 139 mEq/L (136-145); eGFR For African Americans > 60 (> 60); eGFR For Non-African Americans > 60 (> 60)
[2021-06-19] MEDS: Pantoprazole 40 MG VIAL IVP SCH (05:26)
[2021-06-19] MEDS: 0.9 % Sodium Chloride 1,000 ML IVC SCH (05:27)
[2021-06-19] MEDS: Insulin LISPRO 300 UNITS/3 ML VIAL SUBQ SCH ×4 (08:18→21:12)
[2021-06-19 08:25] LABS: Magnesium 1.7 mg/dL (1.6-2.6); Phosphorous 2.2 mg/dL (2.7-4.5)
[2021-06-19] MEDS: Gabapentin 300 MG CAPSULE PO SCH ×3 (08:28→21:13)
[2021-06-19] MEDS: Sucralfate 1 GM TABLET PO SCH ×4 (08:28→21:13)
[2021-06-19] MEDS: Ascorbic Acid 500 MG TABLET PO SCH (08:28)
[2021-06-19] MEDS: Cholecalciferol (D-3) 1,000 UNIT (25MCG) TABLET PO SCH (08:28)
[2021-06-19] MEDS: amLODIPine 5 MG TABLET PO SCH (08:28)
[2021-06-19] MEDS ORDERED: Potassium Phosphate 44 MEQ in 0.9 % Sodium Chloride 250 ML IVPB ONE (09:09)
[2021-06-19] MEDS: Ondansetron 4 MG/2 ML VIAL IVP PRN (14:34)
[2021-06-19] MEDS: *HR* HYDROcodone/Acet 10/325 mg TABLET PO PRN (16:38)
[2021-06-19] MEDS: Apixaban 5 MG TABLET PO SCH (17:24)
[2021-06-19] MEDS: QUEtiapine Fumarate 25 MG TABLET PO SCH (21:13)
[2021-06-20 05:08] LABS: Hematocrit 31.1 % (35.3-44.9); Hemoglobin 9.8 g/dL (11.5-15.4); Mean Corpuscular HGB Conc 31.5 g/dL (31.6-35.5); Mean Corpuscular Volume 85.7 fL (83.0-100.0); Mean Platelet Volume 9.5 fL (9.4-12.4); Platelet Count 211 K/mcL (140-400); Red Blood Count 3.63 M/mcL (3.82-4.97)
[2021-06-20 05:36] LABS: BUN/Creatinine Ratio 13 (6-26); Blood Urea Nitrogen 11 mg/dL (8-23); Calcium 8.2 mg/dL (8.6-10.3); Carbon Dioxide 24 mEq/L (23-29); Chloride 105 mEq/L (98-107); Glucose 135 mg/dL (70-105); Osmolality,Calculated 287 (280-300); Potassium 3.2 mEq/L (3.5-5.1); Sodium 138 mEq/L (136-145); eGFR For African Americans > 60 (> 60); eGFR For Non-African Americans > 60 (> 60)
[2021-06-20] MEDS: Cholecalciferol (D-3) 1,000 UNIT (25MCG) TABLET PO SCH (08:18)
[2021-06-20] MEDS: Sucralfate 1 GM TABLET PO SCH ×2 (08:19→12:25)
[2021-06-20] MEDS: Ascorbic Acid 500 MG TABLET PO SCH (08:19)
[2021-06-20] MEDS: Gabapentin 300 MG CAPSULE PO SCH (08:19)
[2021-06-20] MEDS: Apixaban 5 MG TABLET PO SCH (08:19)
[2021-06-20] MEDS: Insulin LISPRO 300 UNITS/3 ML VIAL SUBQ SCH ×2 (08:20→12:26)
[2021-06-20 08:30] LABS: Phosphorous 2.1 mg/dL (2.7-4.5)
[2021-06-20 11:30] VITALS: BP 122/37; PULSE 72; TEMP 98.8; O2SAT 93
== END 2021-06-20 15:50 | disposition home or self-care (01) | DRG 871 ==
LOC: 2NENU → SUATTDRO 19:32
PROVIDERS: ADMIT Internal Medicine; ATTEND Family Medicine

== ENCOUNTER 2021-09-01 11:14 | Inpatient (IN) ==
[2021-09-01] MEDS ORDERED: CeFAZolin Syr 2,000MG/20 ML 2,000 MG/20 ML SYRINGE IVPB ONE (11:45)
[2021-09-01] MEDS ORDERED: Ringers Solution, Lactated 1,000 ML IVC SCH (11:45)
[2021-09-01] MEDS ORDERED: *HR* FentaNYL (PF) 100 MCG/2 ML VIAL ONE (11:54)
[2021-09-01] MEDS ORDERED: *HR* Propofol 200 MG/20 ML VIAL IVP ONE (11:54)
[2021-09-01] MEDS ORDERED: *HR* Rocuronium Bromide 50 MG/5 ML VIAL ONE ×3 (11:56→14:42)
[2021-09-01] MEDS ORDERED: Ondansetron 4 MG/2 ML VIAL ONE ×2 (11:56→17:56)
[2021-09-01] MEDS ORDERED: Lidocaine -MPF 2% 5 ML VIAL ONE (11:56)
[2021-09-01] MEDS ORDERED: Vancomycin 1,000 MG, Sodium Chloride IRRigation 1,000 ML IR ONE (12:00)
[2021-09-01] MEDS ORDERED: Protamine Sulfate 50 MG/5 ML VIAL IVP ONE (12:00)
[2021-09-01] MEDS ORDERED: Heparin 1,000 UNITS/500 mL 500 ML ONE ×2 (12:00→19:10)
[2021-09-01] MEDS ORDERED: NiCARdipine 2.5 MG/10 ML Syringe IVPB ONE (12:01)
[2021-09-01] MEDS ORDERED: *HR* OxyCODONE Immed Rel 5 MG TABLET PO PRN (12:22)
[2021-09-01] MEDS ORDERED: Promethazine 6.25 MG in Water for inj. (sterile) 20 ML IVPB PRN (12:22)
[2021-09-01] MEDS ORDERED: *HR* HYDROmorphone PF 0.5 MG/0.5 ML SYRINGE IVP PRN (12:22)
[2021-09-01] MEDS ORDERED: Ondansetron 4 MG/2 ML VIAL IVP PRN (12:22)
[2021-09-01] MEDS ORDERED: *HR* HYDROMORPHONE 2 MG/ML VIAL ONE (15:23)
[2021-09-01] MEDS ORDERED: *HR* Heparin 5,000 UNIT/ML VIAL ONE (15:58)
[2021-09-01] MEDS ORDERED: *HR* Norepinephrine 4 MG/4 ML VIAL IVC ONE (16:18)
[2021-09-01] MEDS ORDERED: Vancomycin 1,000 MG VIAL ONE ×2 (17:50→18:33)
[2021-09-01] MEDS ORDERED: Sugammadex Sodium 200 MG/2 ML VIAL IV ONE (18:02)
[2021-09-01 20:12] LABS: Hematocrit 35.2 % (35.3-44.9); Hemoglobin 10.6 g/dL (11.5-15.4)
[2021-09-01] MEDS ORDERED: Naloxone 0.4 MG/ML INJ IVP PRN (22:24)
[2021-09-01] MEDS ORDERED: *HR* Labetalol 20 MG/4 ML SYRINGE IVP PRN (22:24)
[2021-09-01] MEDS ORDERED: 0.9 % Sodium Chloride 1,000 ML IVC SCH (22:24)
[2021-09-01] MEDS: CeFAZolin 2 GM/120 ML BAG IVPB SCH (23:05)
[2021-09-01] MEDS: *HR* Metoprolol 5 MG/5 ML VIAL IVP SCH (23:12)
[2021-09-01 23:22] LABS: Hematocrit 38.3 % (35.3-44.9); Hemoglobin 10.7 g/dL (11.5-15.4)
[2021-09-02] MEDS: *HR* Metoprolol 5 MG/5 ML VIAL IVP SCH ×4 (04:07→22:09)
[2021-09-02 05:33] LABS: Basophils % 0.1 %; Hematocrit 37.1 % (35.3-44.9); Hemoglobin 11.1 g/dL (11.5-15.4); Immature Granulocytes % 0.5 % (0-4); Lymphocytes # 1.5 K/mcL (0.6-4.6); Lymphocytes % 6.2 %; Mean Corpuscular HGB Conc 29.9 g/dL (31.6-35.5); Mean Corpuscular Hemoglobin 25.5 pg (28.0-33.3); Mean Corpuscular Volume 85.3 fL (83.0-100.0); Mean Platelet Volume 10.6 fL (9.4-12.4); Monocytes % 8.3 %; Neutrophils # 20.5 K/mcL (1.6-8.9); Platelet Count 206 K/mcL (140-400); Red Blood Count 4.35 M/mcL (3.82-4.97); Segmented Neutrophils % 84.9 %; White Blood Count 24.1 K/mcL (4.3-11.1)
[2021-09-02 05:45] LABS: Calcium 8.2 mg/dL (8.6-10.3); Potassium 5.1 mEq/L (3.5-5.1)
[2021-09-02] MEDS: CeFAZolin 2 GM/120 ML BAG IVPB SCH (06:40)
[2021-09-02] MEDS ORDERED: Acetaminophen IV 1,000 MG/100 ML BAG IVPB ONE (14:44)
[2021-09-02] MEDS ORDERED: *HR* Metoprolol 5 MG/5 ML VIAL IVP ONE (15:02)
[2021-09-02] MEDS ORDERED: *HR* Heparin 5,000 UNIT/ML VIAL SQ SCH ×2 (18:00)
[2021-09-02] MEDS ORDERED: 0.9 % Sodium Chloride 250 ML IV ONE ×2 (18:18→19:51)
[2021-09-02] MEDS ORDERED: *HR* HYDROmorphone (PF) 1 MG/ML SYRINGE IVP PRN (18:19)
[2021-09-02] MEDS ORDERED: 0.9 % Sodium Chloride 1,000 ML IVC SCH (18:30)
[2021-09-02 19:05] LABS: VBG Ionized Calcium 1.13 mmol/L (1.15-1.35)
[2021-09-02 19:16] LABS: Hematocrit 28.1 % (35.3-44.9); Hemoglobin 8.5 g/dL (11.5-15.4); Mean Corpuscular HGB Conc 30.2 g/dL (31.6-35.5)
[2021-09-02 19:18] LABS: Immature Platelets 6.4 % (1.1-6.1); Mean Corpuscular Hemoglobin 25.2 pg (28.0-33.3); Mean Corpuscular Volume 83.4 fL (83.0-100.0); Platelet Count 151 K/mcL (140-400); Red Blood Count 3.37 M/mcL (3.82-4.97); Red Cell Distribution Width 17.2 % (11.5-14.5); White Blood Count 21.2 K/mcL (4.3-11.1)
[2021-09-02 19:23] LABS: Calcium 8.3 mg/dL (8.6-10.3); Magnesium 1.3 mg/dL (1.6-2.6)
[2021-09-02 19:48] LABS: Lymphocytes # 2.5 K/mcL (0.6-4.6); Monocytes # 2.5 K/mcL (0.0-1.3); Neutrophils # 16.1 K/mcL (1.6-8.9); Platelet Estimate Normal (Normal)
[2021-09-02] MEDS ORDERED: 0.9 % Sodium Chloride 250 ML ONE (19:59)
[2021-09-02] MEDS: Acetaminophen IV 1,000 MG/100 ML BAG IVPB SCH (22:12)
[2021-09-02] MEDS ORDERED: 0.9 % Sodium Chloride 1,000 ML IVC ONE (22:41)
[2021-09-02] MEDS ORDERED: *HR* Rocuronium Bromide 50 MG/5 ML VIAL ONE (22:45)
[2021-09-02] MEDS ORDERED: *HR* Succinylcholine 200 MG/10 ML VIAL IVP ONE (22:45)
[2021-09-02] MEDS ORDERED: Ondansetron 4 MG/2 ML VIAL ONE (22:45)
[2021-09-02] MEDS ORDERED: *HR* Propofol 200 MG/20 ML VIAL IVP ONE (22:45)
[2021-09-02] MEDS ORDERED: *HR* FentaNYL (PF) 100 MCG/2 ML VIAL ONE (22:45)
[2021-09-02] MEDS ORDERED: Lidocaine -MPF 2% 5 ML VIAL ONE (22:45)
[2021-09-02] MEDS ORDERED: *HR* Norepinephrine 4 MG/4 ML VIAL IVC ONE (22:59)
[2021-09-02] MEDS ORDERED: *HR* Vasopressin 20 UNIT/ML VIAL ONE (23:00)
[2021-09-02] MEDS ORDERED: Vancomycin 1 EACH in 0.9 % Sodium Chloride 250 ML IVPB PRN (23:00)
[2021-09-02] MEDS ORDERED: Albumin Human 5% 25.0 GM/500 ML IV.SOLN ONE (23:00)
[2021-09-02] MEDS ORDERED: Heparin 1,000 UNITS/500 mL 500 ML ONE (23:08)
[2021-09-02] MEDS ORDERED: 0.9 % Sodium Chloride 250 ML IVC SCH (23:15)
[2021-09-02] MEDS ORDERED: Ketamine HCL *QUVA* 50mg (1mL) SYRINGE ONE (23:16)
[2021-09-02] MEDS ORDERED: EPINEPHrine 1 MG/ML VIAL ONE (23:36)
[2021-09-02] MEDS ORDERED: *HR* Etomidate 40 MG/20 ML VIAL IVP ONE (23:47)
[2021-09-03] MEDS ORDERED: FentaNYL (PF) 1,000 MCG/100 ML IV.SOLN IVC SCH ×2 (01:00→19:41)
[2021-09-03] MEDS: FentaNYL (PF) 1,000 MCG/100 ML IV.SOLN IVC SCH ×4 (01:08→16:33)
[2021-09-03] MEDS ORDERED: Vancomycin 1 EACH in 0.9 % Sodium Chloride 250 ML IVPB PRN ×2 (01:31→19:41)
[2021-09-03] MEDS ORDERED: 0.9 % Sodium Chloride 250 ML IVC SCH (01:31)
[2021-09-03] MEDS ORDERED: 0.9 % Sodium Chloride 1,000 ML IVC SCH ×2 (01:31→19:41)
[2021-09-03] MEDS ORDERED: 0.9 % Sodium Chloride 1,000 ML IVC ONE (01:31)
[2021-09-03] MEDS ORDERED: *HR* HYDROmorphone (PF) 1 MG/ML SYRINGE IVP PRN ×2 (01:31→19:41)
[2021-09-03] MEDS ORDERED: *HR* Labetalol 20 MG/4 ML SYRINGE IVP PRN ×2 (01:31→19:41)
[2021-09-03] MEDS ORDERED: Naloxone 0.4 MG/ML INJ IVP PRN ×2 (01:31→19:41)
[2021-09-03] MEDS ORDERED: Artificial Tears SOLN 15 ML BOTTLE BOTH EYES PRN ×2 (01:32→19:41)
[2021-09-03] MEDS: Acetaminophen IV 1,000 MG/100 ML BAG IVPB SCH ×3 (01:42→09:07)
[2021-09-03] MEDS: *HR* Metoprolol 5 MG/5 ML VIAL IVP SCH ×3 (03:15→15:46)
[2021-09-03] MEDS: 0.9 % Sodium Chloride 1,000 ML IVC SCH ×2 (03:16→11:17)
[2021-09-03] MEDS: Artificial Tears SOLN 15 ML BOTTLE BOTH EYES SCH ×4 (03:17→15:47)
[2021-09-03 04:03] LABS: ABG Base Excess -10 mEq/L (-2 to 3); ABG HCO3 16 mEq/L (21-27); ABG Oxygen Saturation 99 % (95-98); ABG PCO2 30 mmHg (35-45); ABG PH 7.32 pH Units (7.32-7.45); ABG PO2 164 mmHg (85-104); ABG TCO2 17 mEq/L (20-26); Blood Gas Modality AF; Blood Gas VT 400 cc
[2021-09-03 04:31] LABS: VBG Ionized Calcium 1.22 mmol/L (1.15-1.35)
[2021-09-03 04:44] LABS: Basophils % 0.1 %; Hematocrit 21.7 % (35.3-44.9); Immature Granulocytes % 0.7 % (0-4); Lymphocytes # 1.5 K/mcL (0.6-4.6); Lymphocytes % 11.5 %; Mean Corpuscular HGB Conc 29.5 g/dL (31.6-35.5); Mean Corpuscular Hemoglobin 24.8 pg (28.0-33.3); Mean Corpuscular Volume 84.1 fL (83.0-100.0); Mean Platelet Volume 11.5 fL (9.4-12.4); Neutrophils # 10.2 K/mcL (1.6-8.9); Platelet Count 107 K/mcL (140-400); Red Blood Count 2.58 M/mcL (3.82-4.97); Red Cell Distribution Width 17.3 % (11.5-14.5); Segmented Neutrophils % 79.7 %; White Blood Count 12.8 K/mcL (4.3-11.1)
[2021-09-03 04:46] LABS: Hemoglobin 6.4 g/dL (11.5-15.4)
[2021-09-03 05:02] LABS: Albumin 2.8 g/dL (3.5-5.7); Albumin/Globulin Ratio 1.6 (1.1-2.2); Bilirubin,Total 0.4 mg/dL (0.3-1.0); Calcium 8.2 mg/dL (8.6-10.3); Globulin 1.7 g/dL (2.4-3.5); Magnesium 1.2 mg/dL (1.6-2.6); Phosphorous 4.8 mg/dL (2.7-4.5); Potassium 5.2 mEq/L (3.5-5.1); Total Protein 4.5 g/dL (6.4-8.9); Troponin I 0.03 ng/mL (< 0.04)
[2021-09-03] MEDS ORDERED: Famotidine 20 MG/2 ML VIAL IVP SCH ×3 (06:00→18:00)
[2021-09-03] MEDS ORDERED: *HR* Heparin 5,000 UNIT/ML VIAL SQ SCH (06:00)
[2021-09-03] MEDS ORDERED: Piperacillin/Tazobactam 3.375 GM in 0.9 % Sodium Chloride Mini Bag 100 ML IVPB SCH ×3 (08:00→12:00)
[2021-09-03] MEDS ORDERED: Chlorhexidine Rinse 15 ML MOUTHWASH MM SCH ×2 (09:00→21:00)
[2021-09-03 10:53] LABS: Activated Partial Thrombo Time 41.2 Seconds (26.0-36.0); INR 1.6; Prothrombin Time 18.1 Seconds (9.4-12.1)
[2021-09-03] MEDS ORDERED: 0.9 % Sodium Chloride 250 ML ONE (12:36)
[2021-09-03] MEDS ORDERED: Albumin Human 5% 25.0 GM/500 ML IV.SOLN ONE (17:20)
[2021-09-03] MEDS ORDERED: *HR* Rocuronium Bromide 50 MG/5 ML VIAL ONE (17:35)
[2021-09-03] MEDS ORDERED: EPHEDrine 50 MG/ML VIAL ONE (17:36)
[2021-09-03] MEDS ORDERED: *HR* LORazepam 2 MG/ML VIAL IVP PRN (19:46)
[2021-09-03] MEDS ORDERED: Albuterol 2.5 MG/3 ML NEBULIZER IH PRN (19:46)
[2021-09-03] MEDS ORDERED: *HR* FentaNYL (PF) 100 MCG/2 ML VIAL IVP PRN (19:46)
[2021-09-03] MEDS ORDERED: Ondansetron 4 MG/2 ML VIAL IVP PRN (19:46)
[2021-09-03] MEDS ORDERED: Artificial Tears SOLN 15 ML BOTTLE BOTH EYES SCH (20:00)
[2021-09-03] MEDS ORDERED: *HR* Metoprolol 5 MG/5 ML VIAL IVP SCH (21:00)
[2021-09-03 22:22] VITALS: BP 122/38
[2021-09-03 22:24] VITALS: PULSE 101; TEMP 97.6; O2SAT 60
[2021-09-04] MEDS ORDERED: Acetaminophen IV 1,000 MG/100 ML BAG IVPB SCH
[2021-09-04] MEDS ORDERED: Piperacillin/Tazobactam 3.375 GM in 0.9 % Sodium Chloride Mini Bag 100 ML IVPB SCH (06:00)
[2021-09-04] MEDS ORDERED: Famotidine 20 MG/2 ML VIAL IVP SCH (06:00)
[2021-09-04] MEDS ORDERED: *HR* Heparin 5,000 UNIT/ML VIAL SQ SCH (06:00)
== END 2021-09-03 22:38 | disposition expired | DRG 268 ==
LOC: SAMDAY 11:14 → 2NNU 21:28 → ICNU 09-03 01:02
PROVIDERS: ADMIT Surgery; ATTEND Surgery